=== PATIENT | male | born 1945 | race Caucasian/White ===

== ENCOUNTER → 2018-02-24 12:56 | Outpatient (CLI) | payer MEDICARE, OTHER, SELFPAY ==
[2018-02-24 14:31] LABS: Prostate Specific Antigen < 0.064 ng/mL (0.10-4.00)
== END ==
PROVIDERS: PCP Family Medicine; Visit Provider Urology
DX: C61 Malignant neoplasm of prostate (principal)
CPT/HCPCS: 36415; 84153

== ENCOUNTER → 2018-03-17 15:09 | Outpatient (CLI) | payer MEDICARE, OTHER, SELFPAY ==
--- NOTE | 2018-03-17 | DI.US.S_ITS ---
PROCEDURE: US ABD AORTA ANEURYSM SCREEN INDICATIONS: ABDOMINAL AORTIC ANEURYSM SCREENING TECHNIQUE: Real time scanning was performed of the aorta and iliac arteries, with image documentation. COMPARISON: None. FINDINGS: Aorta: Proximal aortic diameter measures 2.1 x 2.3 cm. Mid-aorta measures 1.6 x 1.7 cm. Distal aortic diameter is 1.7 x 1.9 cm. Iliac arteries: Right common iliac artery measures 1.1 x 1.0 cm. Left common iliac artery measures 1.1 x 1.1 cm. The imaging coincidentally included identification of a hypoechoic masslike structure at the pancreatic neck area, possibly contiguous with the pancreatic duct. IMPRESSION: No aneurysm found. There is an incidental finding of a hypoechoic possible pancreatic neck mass. This measures up to approximately 1.2 cm transverse and 6 mm AP. Pancreatic protocol CT scanning without and with contrast is recommended. Dictated by: Santino Pineda M.D. on 03/17/2018 at 16:11 Approved by: Santino Pineda M.D. on 03/17/2018 at 17:01
== END ==
PROVIDERS: PCP Family Medicine; Visit Provider Family Medicine
DX: Z13.6 Encounter for screening for cardiovascular disorders (principal)
CPT/HCPCS: 76706

== ENCOUNTER → 2018-04-07 14:25 | Outpatient (CLI) | payer MEDICARE, OTHER, SELFPAY ==
[2018-04-07 15:01] LABS: Alanine Aminotransferase 33 IU/L (21-72); Albumin 3.9 g/dL (3.5-5.0); Albumin Globulin Ratio 1.6 (1.0-2.8); Alkaline Phosphatase 75 U/L (38-126); Aspartate Aminotransferase 30 IU/L (17-59); BUN Creatinine Ratio 17.5 (6-22); Bilirubin Total 0.4 mg/dL (0.2-1.3); Blood Urea Nitrogen 14 mg/dL (9-20); Calcium 9.1 mg/dL (8.4-10.2); Carbon Dioxide 29 mmol/L (22-32); Chloride 103 mmol/L (98-107); Estimated Glomerular Filt Rate > 60.0 mL/min (>60); Globulin 2.5 g/dL (1.7-4.1); Glucose 105 mg/dL (80-110); HEMOLYSIS < 15 (0-50); Sodium 138 mmol/L (137-145); Total Protein 6.4 g/dL (6.3-8.2)
== END ==
PROVIDERS: PCP Family Medicine; Visit Provider Family Medicine
DX: K86.9 Disease of pancreas, unspecified (principal)
CPT/HCPCS: 36415; 80053

== ENCOUNTER → 2018-04-11 09:04 | Outpatient (CLI) | payer MEDICARE, OTHER, SELFPAY ==
--- NOTE | 2018-04-11 | DI.CT.S_ITS ---
PROCEDURE: CT ABDOMEN W CON INDICATIONS: PANCREATIC MASS TECHNIQUE: After the administration of intravenous contrast, 5 mm thick sections acquired from the diaphragm to the iliac crests. 5 mm coronal and sagittal reformats were performed. For radiation dose reduction, the following was used: automated exposure control, adjustment of mA and/or kV according to patient size. COMPARISON: [facility], CT, ABDOMEN/PELVIS WITH CONTRAST, 02/26/2016, 11:04. [facility], US, US ABD AORTA ANEURYSM SCREEN, 03/17/2018, 15:42. FINDINGS: Image quality: Excellent. Lung bases: Lung bases are clear. Heart size is normal. Small hiatal hernia. Solid organs: Liver is normal in size and enhancement. A few scattered sub-5 mm hepatic hypodensities are again noted. These are too small to characterize but likely represent cysts versus hemangiomas. Gallbladder appears unremarkable. Biliary system is non dilated. The within the pancreatic body near the pancreatic neck, there is a 1.2 x 1.1 x 0.8 cm hypodense mass which likely corresponds to hypoechoic mass seen on recent ultrasound. There is no associated pancreatic ductal dilatation. No adjacent peripancreatic stranding. Pancreas otherwise enhances uniformly. Spleen is normal in size and enhancement. No adrenal nodules. Kidneys demonstrate normal size and enhancement, without hydronephrosis. Peritoneum and bowel: Bowel loops demonstrate normal wall thickness and caliber. No free fluid or air. Scattered colonic diverticula without acute inflammation. Nodes and vessels: No retroperitoneal or mesenteric adenopathy by size criteria. Aorta and inferior vena cava are normal in size. Miscellaneous: No ventral hernias. Stable oval sclerotic lesions involving the medial iliac wings bilaterally likely representing bone islands. No suspicious osseous lesions. Multilevel spondylitic changes without acute compression fractures of the visualized vertebral bodies. IMPRESSION: 1. There is a 1.2 x 1.1 x 0.8 cm hypodense mass noted within the pancreatic body, in close vicinity to the pancreatic neck and likely correlates with hypoechoic lesion seen on recent comparison abdominal ultrasound. Findings are suspicious for a pancreatic neoplasm. 2. Colonic diverticulosis without acute diverticulitis. 3. Remainder of the visualized structures appear stable compared to CT dated 02/26/2016 without evidence for metastatic disease. Dictated by: Iron Muhammad M.D. on 04/12/2018 at 11:14 Approved by: Iron Muhammad M.D. on 04/12/2018 at 11:27
== END ==
PROVIDERS: Visit Provider Family Medicine
DX: K86.9 Disease of pancreas, unspecified (principal); K57.90 Diverticulosis of intestine, part unspecified, without perforation or abscess without bleeding
CPT/HCPCS: 74170; Q9967

== ENCOUNTER 2018-07-25 08:13 | Day surgery (SDC) | payer MEDICARE, OTHER, SELFPAY ==
--- NOTE | 2018-07-25 | PATH_ITS ---
[facility] Accession Number: [id number] . 01 Material submitted: . colon - TRANSVERSE COLON POLYP . 02 Diagnosis: Transverse Colon, Polyp: Tubular adenoma. Background colonic mucosa with intraepithelial lymphocytosis; please see comment. Additional step sections examined. V/07/27/2018 . 02 Comment: Background colonic mucosa shows an increased mononuclear cell population of the lamina propria and intraepithelial lymphocytosis. This histologic finding raises the possibility of lymphocytic colitis in the appropriate clinical setting. . 02 Electronically signed: . Blade Machado MD, PhD, Pathologist NPI- [id number] . 01 Gross description: . TRANSVERSE COLON POLYP: Received in formalin are 2 fragment(s) of ramírez, soft tissue measuring 0.2 x 0.2 x 0.1 cm to 0.4 x 0.3 x 0.2 cm which is entirely submitted and submitted entirely in 1 cassette(s) /DMC /DMC . 02 Pathologist provided ICD-10: D12.3 . 02 CPT . 019631 Performed at: 01 [facility] [address] [place] [address], [place], [place] [id number] MD Timoteo Phillips MD Phone: [phone] Performed at: 02 [facility] [address] [place], [place] [id number] MD Svetlana Gutierrez MD Phone: [phone]
[2018-07-25 08:52] VITALS: BMI 24.0
--- NOTE | 2018-07-25 08:53 | PM.HP.1 ---
History of Present Illness Date Patient Seen: 07/25/18 Time Patient Seen: 09:00 Chief complaint: [id number] Narrative: 72yo M with family history of colon cancer and person history of 'pre-cancerous lesion' for which he had a '6 cm segment' of colon removed some years ago. He had a CVA around that time and his memory is poor for details. Has had many colonoscopies but does not know when the last one was. Meds Home Medications Medication Instructions Recorded Confirmed Type aspirin [Aspir-81] 81 mg PO DAILY 07/25/18 07/25/18 History cholecalciferol (vitamin D3) 2,000 unit PO DAILY 07/25/18 07/25/18 History [Vitamin D3] melatonin 6 mg PO BEDTIME PRN 07/25/18 07/25/18 History metoprolol succinate [Toprol XL] 50 mg PO DAILY 07/25/18 07/25/18 History niacin [Niaspan Extended-Release] 500 mg PO BID 07/25/18 07/25/18 History simvastatin 20 mg PO QPM 07/25/18 07/25/18 History terbinafine HCl 250 mg PO DAILY 07/25/18 07/25/18 History Allergies Allergy/AdvReac Type Severity Reaction Status Date / Time No Known Drug Allergies Allergy Verified 07/25/18 08:40 Review of Systems Constitutional Constitutional: Reports as per HPI Exam Narrative Exam Narrative: AAO but some memory confusion, NAD, male of healthy weight EOMI, MMM, no scleral icterus; hard of hearing unlabored RA soft, nt/nd MAEW visible skin dry and intact Assessment & Plan (1) History of colon polyps: Current visit: Yes Status: Acute Assessment & Plan narrative: - surveillance colonoscopy --> all R/B/A discussed and pt wishes to proceed
[2018-07-25 08:55] VITALS: BP 129/85; PULSE 74; RESP 16; TEMP 36.3; O2SAT 94
[2018-07-25 08:59] VITALS: BMI 24.0
[2018-07-25] MEDS: SODIUM CHLORIDE 0.9% 1,000 ML 200 ML IV (08:59)
[2018-07-25] MEDS: fentaNYL 250 MCG/5 ML INJ IV (09:27)
[2018-07-25] MEDS: MIDAZOLAM 5 MG/5 ML VIAL IV (09:28)
--- NOTE | 2018-07-25 09:33 | PM.OP.ENDO ---
Operative Date/Time/Diagnoses Date of procedure: 07/25/18 Time of procedure: 09:33 Pre-op diagnosis: History of colon polyps Post-op diagnosis: same Procedure & Clinicians Study performed: Surveillance Colonoscopy Same procedure as scheduled: Yes Indications: 72yo M s/p CVA with history of polyps that were precancerous and per pt a segment of colon was removed; he is unsure of details due to stroke. Also has a family history. No reported symptoms. Surgeon: Martha Weston Procedure Notes SCOAP/Timeout: 908 Procedure in detail: After obtaining informed consent, the patient was brought to the GI suite and placed in the left lateral decubitus position on the examination table. After placement of appropriate monitors, the patient was given incremental doses of Versed and Fentanyl until an appropriate level of sedation was achieved. A time out was held per SCOAP protocol. A digital rectal examination was performed and did not reveal any masses or obstructing lesions. The colonoscope was gently passed into the patient's anus and the entire colon navigated to the level of the cecum with minimal difficulty. Prep was adequate. Once in the cecum, the scope was slowly withdrawn being sure to go before and beyond all mucosal folds and prominences as able to get a thorough examination. A small transverse colon polyp is noted and removed for biopsy; 1mm, hyperplastic in appearance. Other findings include diverticulosis. At the level of the rectal vault, the scope was retroflexed and the internal anal canal was examined. The scope was straightened and air aspirated from the colon. The instrument was removed from the patient's body and the procedure was concluded. The patient was allowed to awaken from sedation without difficulty and taken to the post-anesthesia care unit in good condition. Scope withdrawal time: 9 min Sedation minutes: 21 Findings: diverticulosis (scattered through sigmoid and left colon primarily) and polyp (1mm, transverse colon, appears hyperplastic- removed for biopsy) Specimen(s): other (transverse colon polyp) Complications: none Impression: 1. Diverticulosis, mild to moderate, primarily sigmoid and left colon 2. Transverse colon polyp, appears hyperplastic- removed for biopsy Recommendations: Colonscopy in 5 years (pending path) and High fiber diet Follow up: as needed Disposition: PACU
[2018-07-25 09:36] VITALS: BP 116/77; PULSE 60; RESP 13; TEMP 36.6; O2SAT 99
[2018-07-25 09:41] VITALS: BP 111/72; PULSE 60; RESP 11; O2SAT 98
[2018-07-25 09:46] VITALS: BP 123/81; PULSE 67; RESP 12; TEMP 36.4; O2SAT 98
[2018-07-25 09:51] VITALS: BP 125/88; PULSE 63; RESP 13; TEMP 36.4; O2SAT 98
[2018-07-25 09:53] VITALS: BP 134/90; PULSE 61; RESP 61; TEMP 36.4; O2SAT 98
== END 2018-07-25 10:10 | disposition home or self-care (01) ==
PROVIDERS: Visit Provider Surgery
PROC: 0DJD8ZZ Inspection of Lower Intestinal Tract, Via Natural or Artificial Opening Endoscopic (ICD-10-PCS; CPT 45378; principal; 2018-07-25 09:45)
DX: Z86.010 Personal history of colon polyps (principal); K57.30 Diverticulosis of large intestine without perforation or abscess without bleeding; D12.3 Benign neoplasm of transverse colon
CPT/HCPCS: 45380; 88305; 99152; J2250; J3010

== ENCOUNTER 2020-04-25 14:49 | Emergency (ER) | payer MEDICARE, OTHER, SELFPAY ==
[2020-04-25] VITALS (11 sets, daily range): BP systolic 137–156; BP diastolic 86–97; PULSE 75–97; RESP 14–34; TEMP 36.9; O2SAT 96–100; BMI 24.4
[2020-04-25 15:36] LABS: Add Manual Diff / Slide Review NO; Basophils Absolute Auto 0 /uL (0-100); Basophils Percent Auto 0.4 % (0-2); Eosinophils Absolute Auto 100 /uL (0-450); Eosinophils Percent Auto 0.8 % (2-4); Hematocrit 42.5 % (41-53); Lymphocytes Absolute Auto 1100 /uL (1100-4500); Lymphocytes Percent Auto 15.5 % (25-40); Mean Corpuscular Hemoglobin 29.6 PG (26-34); Mean Corpuscular Volume 89.8 fL (80-100); Monocytes Absolute Auto 900 /uL (0-900); Monocytes Percent Auto 12.9 % (3-14); Neutrophils Absolute Auto 5000 /uL (1500-7000); Neutrophils Percent Auto 70.4 % (50-75); Platelet Count 232 X10^3/uL (150-400); Red Blood Cell Count 4.73 X10^6/uL (4.5-5.9); Red Cell Distribution Width 14.1 % (11.6-14.8); White Blood Cell Count 7.1 X10^3/uL (4.5-11.0)
[2020-04-25 15:43] LABS: Prothrombin Time 11.7 SECONDS (10.1-12.7)
[2020-04-25 15:46] LABS: PTT Partial Thromboplastin Tim 27 SECONDS (26.4-36.2)
[2020-04-25 15:57] LABS: Alanine Aminotransferase 26 IU/L (<50); Albumin Globulin Ratio 1.5 (1.0-2.8); Alkaline Phosphatase 72 U/L (38-126); Aspartate Aminotransferase 40 IU/L (17-59); BUN Creatinine Ratio 22.8 (6-22); Bilirubin Total 0.4 mg/dL (0.2-1.3); Blood Urea Nitrogen 18 mg/dL (9-20); Calcium 9.3 mg/dL (8.4-10.2); Carbon Dioxide 30 mmol/L (22-32); Chloride 102 mmol/L (98-107); Estimated Glomerular Filt Rate > 60.0 mL/min (>60); Globulin 2.6 g/dL (1.7-4.1); Glucose 94 mg/dL (80-110); HEMOLYSIS 20 (0-50); Potassium 3.9 mmol/L (3.4-5.1); Sodium 135 mmol/L (137-145); Total Protein 6.6 g/dL (6.3-8.2)
--- NOTE | 2020-04-25 16:13 | ED_ITS ---
HPI - GI Bleed <Kun Mckinnon DO - Last Filed: 04/26/20 07:00> General Chief complaint: GI Bleed Stated complaint: blood in stool Time Seen by Provider: 04/25/20 14:51 Source: patient Mode of arrival: Ambulatory Limitations: no limitations History of Present Illness HPI Narrative: Patient is a 74-year-old male. He does have a history of colon cancer and has had a bowel resection. He states that for ?some time? he has had issues with constipation any felt like it is worsened over the past day or so. Patient's son is at bedside to help provide a lot of the HPI. Unsure as to exactly how long the patient thinks that he has been constipated. The son states that he complains of this often but does seem to have regular bowel movements. Today patient stated that he had a bowel movement that was bright red blood. He states that was not tender to go to the bathroom. He has not had any urinary symptoms. He is not on blood thinners. Has not had any nausea or vomiting. He states that he does not feel distended. He does not think that he is been passing gas. He did try a oral laxative yesterday without any improvement of the symptoms any also used a suppository today. Related Data Home Medications Medication Instructions Recorded Confirmed aspirin 81 mg PO QDAY #0 04/09/16 metoprolol tartrate 25 mg PO DAILY #0 04/09/16 niacin 100 mg #0 04/09/16 Allergies Allergy/AdvReac Type Severity Reaction Status Date / Time No Known Drug Allergies Allergy Verified 04/25/20 14:59 Review of Systems <DO Cortez Harris Last Filed: 04/26/20 07:00> Constitutional Constitutional: Denies fever(s) and Denies headache(s) ENT Ears, Nose, Mouth, and Throat: Denies headache(s) Cardiovascular Cardiovascular: Denies chest pain and Denies dyspnea Respiratory Respiratory: Denies dyspnea Gastrointestinal Gastrointestinal: Denies abdominal pain, Denies melena, Reports hematochezia, Reports constipation, Denies nausea and Denies vomiting Genitourinary Genitourinary: Denies dysuria Genitourinary: Denies dysuria Musculoskeletal Musculoskeletal: Denies arthralgias and Denies myalgias Integumentary/Breasts Skin/Breast: Denies rash Neurologic Neurologic: Denies behavioral changes and Denies headache(s) Psychiatric Psychiatric: Denies behavioral changes Hematologic/Lymphatic On Anticoagulants: No Allergic/Immunologic Allergic/Immunologic: Denies urticaria Patient History <Kun Mckinnon DO - Last Filed: 04/26/20 07:00> Medical History Colon cancer Surgical History History of bowel resection Social History Smoking Status: Unknown if ever smoked Smoking Status: Unknown if ever smoked alcohol intake frequency: holidays/special occasions only Substance Use Type: does not use Exam <Kun Mckinnon DO - Last Filed: 04/26/20 07:00> Initial Vital Signs Initial Vital Signs: Vital Signs Temperature 98.4 F 04/25/20 14:59 Pulse Rate 79 04/25/20 14:59 Respiratory Rate 14 04/25/20 14:59 Blood Pressure 144/89 H 04/25/20 14:59 Pulse Oximetry 99 04/25/20 14:59 Const General: cooperative Limitations: mental status not altered HENMT Head: normal to inspection and normocephalic Resp Effort & Inspection: normal respiratory effort Auscultation: clear to auscultation bilaterally Cardio Rate: regular rate Rhythm: regular rhythm GI Inspection: non-distended Palpation: soft, No firm and No tender Rectal Exam: normal sphincter tone, No hemorrhoids, No lesions and No mass Other: Gross bright red blood on exam Skin Lesions: no lesions Rashes: no rashes Neuro General: patient alert and patient awake Cognition: normal cognition Speech: speech normal Extrem General: capillary refill normal Psych Appearance: grossly normal and well kempt <Fabio Hutchinson MD - Last Filed: 04/25/20 19:51> Initial Vital Signs Initial Vital Signs: Vital Signs Temperature 98.4 F 04/25/20 14:59 Pulse Rate 79 04/25/20 14:59 Respiratory Rate 14 04/25/20 14:59 Blood Pressure 144/89 H 04/25/20 14:59 Pulse Oximetry 99 04/25/20 14:59 Course <Kun Mckinnon DO - Last Filed: 04/26/20 07:00> Orders Ordered: Discontinued Medications Sodium Chloride (Normal Saline 0.9%) 1,000 mls @ 500 mls/hr IV BOLUS ONE Stop: 04/25/20 18:22 Last Infusion: 04/25/20 18:55 Dose: 0 mls/hr Documented by: Admin: 04/25/20 16:30 Dose: 500 mls/hr Documented by: LYNDA Sodium Biphosphate/Sodium Phosphate (Fleets Enema) 1 each NE NOW ONE Stop: 04/25/20 17:31 Last Admin: 04/25/20 17:45 Dose: 1 each Documented by: LYNDA Vital Signs Vital signs: Vital Signs - 8 hr 04/25/20 14:59 04/25/20 15:29 04/25/20 15:30 Temperature 98.4 F Pulse Rate 79 79 81 Respiratory Rate 14 28 H 28 H Blood Pressure 144/89 H 153/93 H 153/92 H Pulse Oximetry 99 98 98 04/25/20 16:00 04/25/20 16:30 04/25/20 16:54 Temperature Pulse Rate 81 82 80 Respiratory Rate 18 34 H 16 Blood Pressure 156/87 H 146/92 H 145/87 H Pulse Oximetry 99 97 100 04/25/20 17:00 04/25/20 17:30 04/25/20 18:00 Temperature Pulse Rate 78 79 75 Respiratory Rate 22 26 H 20 Blood Pressure 137/89 139/86 144/94 H Pulse Oximetry 99 99 04/25/20 18:30 Temperature Pulse Rate 97 H Respiratory Rate 20 Blood Pressure 137/97 H Pulse Oximetry <Fabio Hutchinson MD - Last Filed: 04/25/20 19:51> Course Course Narrative: 04/25/20 @19:46. Care was assumed from Dr. Mckinnon at change of shift. The patient has a history of bowel resection due to cancer. Arrives with constipation, but GI bleeding was discovered. CT shows diverticulosis, no diverticulitis. Also shown is a previous identified pancreatic lesion. The patient and his family are aware of the pancreatic lesion, it is been monitored. There is no treatment plan. The constipation has been treated, he had a bowel movement. He has no abdominal pain. There is no significant ongoing bleeding. His H/H is stable. The situation discussed with the son who has arrived. 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 I have suggest a follow-up with Gastroenterology regarding the lower GI bleed. I suggested return to the ER if there is increased bleeding. Orders Ordered: Discontinued Medications Sodium Chloride (Normal Saline 0.9%) 1,000 mls @ 500 mls/hr IV BOLUS ONE Stop: 04/25/20 18:22 Last Infusion: 04/25/20 18:55 Dose: 0 mls/hr Documented by: Admin: 04/25/20 16:30 Dose: 500 mls/hr Documented by: LYNDA Sodium Biphosphate/Sodium Phosphate (Fleets Enema) 1 each NE NOW ONE Stop: 04/25/20 17:31 Last Admin: 04/25/20 17:45 Dose: 1 each Documented by: LYNDA Vital Signs Vital signs: Vital Signs - 8 hr 04/25/20 14:59 04/25/20 15:29 04/25/20 15:30 Temperature 98.4 F Pulse Rate 79 79 81 Respiratory Rate 14 28 H 28 H Blood Pressure 144/89 H 153/93 H 153/92 H Pulse Oximetry 99 98 98 04/25/20 16:00 04/25/20 16:30 04/25/20 16:54 Temperature Pulse Rate 81 82 80 Respiratory Rate 18 34 H 16 Blood Pressure 156/87 H 146/92 H 145/87 H Pulse Oximetry 99 97 100 04/25/20 17:00 04/25/20 17:30 04/25/20 18:00 Temperature Pulse Rate 78 79 75 Respiratory Rate 22 26 H 20 Blood Pressure 137/89 139/86 144/94 H Pulse Oximetry 99 99 04/25/20 18:30 Temperature Pulse Rate 97 H Respiratory Rate 20 Blood Pressure 137/97 H Pulse Oximetry MDM - GI Bleed <Kun Mckinnon, DO - Last Filed: 04/26/20 07:00> Lab Data Attestation: I reviewed the patient's lab results. Result diagrams: 04/25/20 18:45 04/25/20 15:25 Labs: Lab Results 04/25/20 04/25/20 04/25/20 Range/Units 15:25 15:25 15:25 WBC 7.1 (4.5-11.0) X10^3/uL RBC 4.73 (4.5-5.9) X10^6/uL Hgb 14.0 (13.5-17.5) g/dL Hct 42.5 (41-53) % MCV 89.8 (80-100) fL MCH 29.6 (26-34) PG MCHC 33.0 (30-36) % RDW 14.1 (11.6-14.8) % Plt Count 232 (150-400) X10^3/uL Neut % (Auto) 70.4 (50-75) % Lymph % (Auto) 15.5 L (25-40) % [place] % (Auto) 12.9 (3-14) % Eos % (Auto) 0.8 L (2-4) % Baso % (Auto) 0.4 (0-2) % Neut # (Auto) 5000 (5025-6601) /uL Lymph # (Auto) 1100 (5006-7246) /uL [place] # (Auto) 900 (0-900) /uL Eos # (Auto) 100 (0-450) /uL Baso # (Auto) 0 (0-100) /uL PT 11.7 (10.1-12.7) SECONDS INR 1.0 (0.9-1.3) APTT 27 (26.4-36.2) SECONDS Sodium 135 L (137-145) mmol/L Potassium 3.9 (3.4-5.1) mmol/L Chloride 102 (98-107) mmol/L Carbon Dioxide 30 (22-32) mmol/L BUN 18 (9-20) mg/dL Creatinine 0.79 (0.66-1.25) mg/dL Estimated GFR > 60.0 (>60) mL/min BUN/Creatinine Ratio 22.8 H (6-22) Glucose 94 (80-110) mg/dL Calcium 9.3 (8.4-10.2) mg/dL Total Bilirubin 0.4 (0.2-1.3) mg/dL AST 40 (17-59) IU/L ALT 26 (<50) IU/L Alkaline Phosphatase 72 (38-126) U/L Total Protein 6.6 (6.3-8.2) g/dL Albumin 4.0 (3.5-5.0) g/dL Globulin 2.6 (1.7-4.1) g/dL Albumin/Globulin Ratio 1.5 (1.0-2.8) 04/25/20 Range/Units 18:45 WBC (4.5-11.0) X10^3/uL RBC (4.5-5.9) X10^6/uL Hgb 13.9 (13.5-17.5) g/dL Hct 41.3 (41-53) % MCV (80-100) fL MCH (26-34) PG MCHC (30-36) % RDW (11.6-14.8) % Plt Count (150-400) X10^3/uL Neut % (Auto) (50-75) % Lymph % (Auto) (25-40) % [place] % (Auto) (3-14) % Eos % (Auto) (2-4) % Baso % (Auto) (0-2) % Neut # (Auto) (7131-3903) /uL Lymph # (Auto) (0252-4322) /uL [place] # (Auto) (0-900) /uL Eos # (Auto) (0-450) /uL Baso # (Auto) (0-100) /uL PT (10.1-12.7) SECONDS INR (0.9-1.3) APTT (26.4-36.2) SECONDS Sodium (137-145) mmol/L Potassium (3.4-5.1) mmol/L Chloride (98-107) mmol/L Carbon Dioxide (22-32) mmol/L BUN (9-20) mg/dL Creatinine (0.66-1.25) mg/dL Estimated GFR (>60) mL/min BUN/Creatinine Ratio (6-22) Glucose (80-110) mg/dL Calcium (8.4-10.2) mg/dL Total Bilirubin (0.2-1.3) mg/dL AST (17-59) IU/L ALT (<50) IU/L Alkaline Phosphatase (38-126) U/L Total Protein (6.3-8.2) g/dL Albumin (3.5-5.0) g/dL Globulin (1.7-4.1) g/dL Albumin/Globulin Ratio (1.0-2.8) Urine Dip Bedside Urine Glucose Negative Bedside Urine Bilirubin - Negative Bedside Urine Ketone - Negative Urine Specific [place] 1.015 Bedside Urine Occult Blood - Negative Bedside Urine pH 6.0 Bedside Urine Protein - Negative Bedside Urine Urobilinogen - Negative Bedside Urine Nitrite - Negative Bedside Urine Leukocytes - Negative Esterase Imaging Data CT scan - abdomen/pelvis: Radiologist's Impression: [place] [id number] [place] [id number] Scan ReportSigned Patient: Vinay Bravo KMR#: [id number]: 5Acct:[id number]/Sex: 74 / MDate of Service: 04/25/20Loc: EDAccession Number: [id number] Procedure: CT abdomen pelvis w con Ordering Provider: Kun Mckinnon D.O. PROCEDURE: CT ABDOMEN PELVIS W CON INDICATIONS: Constipation, abdominal pain TECHNIQUE: After the administration of intravenous contrast, 5 mm thick sections acquired from the diaphragm to the symphysis. 5 mm coronal and sagittal reformats were acquired. For radiation dose reduction, the following was used: automated exposure control, adjustment of mA and/or kV according to patient size. COMPARISON: [facility], CT, CT ABDOMEN W CON, 04/11/2018, 9:31. [facility], MR, MR ABDOMEN PANCREAS PROTOCOL, 11/12/2018, 8:35. [facility], CT, ABDOMEN/PELVIS WITH CONTRAST, 02/26/2016, 11:04. FINDINGS: Image quality: Excellent. ABDOMEN: Lung bases: Lung bases are clear. Heart size is normal. Small hiatal hernia. Solid organs: Liver is normal in size and enhancement. Redemonstration of multiple subcentimeter hepatic hypodensities which are too small to accurately characterize but likely represent hepatic cysts or hemangiomas. Gallbladder is unremarkable. Biliary system is non dilated. Pancreas demonstrates homogeneous enhancement with stable appearance of focal cystic lesion involving the main pancreatic duct near the pancreatic body. This was previously evaluated to represent a likely intraductal pancreatic mucinous neoplasm. It measures approximately 1.1 cm x 1.3 cm. The main pancreatic duct is otherwise normal in caliber. Spleen is normal in size and enhancement. Kidneys demonstrate normal size and enhancement, without hydronephrosis. Visualized course of the bilateral ureters are normal. Peritoneum and bowel: Bowel loops demonstrate normal wall thickness and caliber. No free fluid or air. Moderate amount of fecal material seen throughout the colon and rectum. Scanned colonic diverticulosis without acute inflammatory changes. Normal appendix. Nodes and vessels: No retroperitoneal or mesenteric adenopathy by size criteria. Aorta and inferior vena cava are normal in size. Scattered atherosclerotic calcifications of the abdominal aorta and iliac vessels without aneurysmal dilatation. Miscellaneous: No ventral hernias. PELVIS: Genitourinary: Urinary bladder wall thickness appears normal for degree of distension. 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 Miscellaneous: Small fat containing right inguinal hernia without acute inflammation. No pelvic adenopathy. Bones: Accounting for differences in imaging technique, stable appearance of multiple scattered punctate sclerotic lesions noted within the right iliac bone, left iliac bone, multiple lumbar and thoracic vertebral bodies. No acute vertebral body compression fractures. IMPRESSION: 1. Moderate amount of fecal material seen throughout the colon and rectum possibly related to constipation. 2. Scattered colonic diverticulosis without acute diverticulitis. 3. 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 Recommend continued clinical and imaging surveillance. 4. Small hiatal hernia. 5. Small right fat containing inguinal hernia without acute inflammation. 6. Stable appearance of multiple subcentimeter hepatic hypodensities likely representing cysts versus hemangiomas. 7. Atherosclerosis. Dictated by: Iron Muhammad M.D. on 04/25/2020 at 17:00 Approved by: Iron Muhammad M.D. on 04/25/2020 at 17:15 ECG Data Attestation: I personally reviewed and interpreted this ECG as follows: Prior ECG tracings: not available for review Interpretation: Sinus rhythm Ventricular rate is 79 Left axis deviation Normal QRS Normal QTC No ST T wave changes MDM Narrative Medical decision making narrative: Patient's CT scan does not show any signs of obstructions. His labs are unremarkable. He does have a pancreatic lesion noted on the CT scan. Will attempt enema here in the emergency department to see if this does not improve his symptoms. Care turned over to Dr. Hutchinson to follow up, re-examined and disposition. <Fabio Hutchinson MD - Last Filed: 04/25/20 19:51> Lab Data Labs: Lab Results 04/25/20 04/25/20 04/25/20 Range/Units 15:25 15:25 15:25 WBC 7.1 (4.5-11.0) X10^3/uL RBC 4.73 (4.5-5.9) X10^6/uL Hgb 14.0 (13.5-17.5) g/dL Hct 42.5 (41-53) % MCV 89.8 (80-100) fL MCH 29.6 (26-34) PG MCHC 33.0 (30-36) % RDW 14.1 (11.6-14.8) % Plt Count 232 (150-400) X10^3/uL Neut % (Auto) 70.4 (50-75) % Lymph % (Auto) 15.5 L (25-40) % [place] % (Auto) 12.9 (3-14) % Eos % (Auto) 0.8 L (2-4) % Baso % (Auto) 0.4 (0-2) % Neut # (Auto) 5000 (3173-0737) /uL Lymph # (Auto) 1100 (3044-9678) /uL [place] # (Auto) 900 (0-900) /uL Eos # (Auto) 100 (0-450) /uL Baso # (Auto) 0 (0-100) /uL PT 11.7 (10.1-12.7) SECONDS INR 1.0 (0.9-1.3) APTT 27 (26.4-36.2) SECONDS Sodium 135 L (137-145) mmol/L Potassium 3.9 (3.4-5.1) mmol/L Chloride 102 (98-107) mmol/L Carbon Dioxide 30 (22-32) mmol/L BUN 18 (9-20) mg/dL Creatinine 0.79 (0.66-1.25) mg/dL Estimated GFR > 60.0 (>60) mL/min BUN/Creatinine Ratio 22.8 H (6-22) Glucose 94 (80-110) mg/dL Calcium 9.3 (8.4-10.2) mg/dL Total Bilirubin 0.4 (0.2-1.3) mg/dL AST 40 (17-59) IU/L ALT 26 (<50) IU/L Alkaline Phosphatase 72 (38-126) U/L Total Protein 6.6 (6.3-8.2) g/dL Albumin 4.0 (3.5-5.0) g/dL Globulin 2.6 (1.7-4.1) g/dL Albumin/Globulin Ratio 1.5 (1.0-2.8) 04/25/ Range/Units 18:45 WBC (4.5-11.0) X10^3/uL RBC (4.5-5.9) X10^6/uL Hgb 13.9 (13.5-17.5) g/dL Hct 41.3 (41-53) % MCV (80-100) fL MCH (26-34) PG MCHC (30-36) % RDW (11.6-14.8) % Plt Count (150-400) X10^3/uL Neut % (Auto) (50-75) % Lymph % (Auto) (25-40) % [place] % (Auto) (3-14) % Eos % (Auto) (2-4) % Baso % (Auto) (0-2) % Neut # (Auto) (7646-0071) /uL Lymph # (Auto) (5473-6387) /uL [place] # (Auto) (0-900) /uL Eos # (Auto) (0-450) /uL Baso # (Auto) (0-100) /uL PT (10.1-12.7) SECONDS INR (0.9-1.3) APTT (26.4-36.2) SECONDS Sodium (137-145) mmol/L Potassium (3.4-5.1) mmol/L Chloride (98-107) mmol/L Carbon Dioxide (22-32) mmol/L BUN (9-20) mg/dL Creatinine (0.66-1.25) mg/dL Estimated GFR (>60) mL/min BUN/Creatinine Ratio (6-22) Glucose (80-110) mg/dL Calcium (8.4-10.2) mg/dL Total Bilirubin (0.2-1.3) mg/dL AST (17-59) IU/L ALT (<50) IU/L Alkaline Phosphatase (38-126) U/L Total Protein (6.3-8.2) g/dL Albumin (3.5-5.0) g/dL Globulin (1.7-4.1) g/dL Albumin/Globulin Ratio (1.0-2.8) Urine Dip Bedside Urine Glucose Negative Bedside Urine Bilirubin - Negative Bedside Urine Ketone - Negative Urine Specific [place] 1.015 Bedside Urine Occult Blood - Negative Bedside Urine pH 6.0 Bedside Urine Protein - Negative Bedside Urine Urobilinogen - Negative Bedside Urine Nitrite - Negative Bedside Urine Leukocytes - Negative Esterase Discharge Plan Departure Patient Disposition: Home Clinical Impression: Pancreatic lesion, Constipation, Lower gastrointestinal hemorrhage, Diverticu losis Instructions: Gastrointestinal Bleeding Activity Restrictions/Additional Instructions: Your blood count is stable, you have not had a significant amount of bleeding. Be sure you are drinking plenty of water. You should also be on a high-fiber diet. If you develop significant increase in bleeding, return the ER. Arrange follow-up with your powerhouse attendant, your GI specialist may want to do a colonoscopy to further evaluate the situation. Prescriptions: No Action niacin 100 MG tablet 100 mg Qty: 0 RF: 0 metoprolol tartrate 25 MG tablet 25 mg PO DAILY Qty: 0 RF: 0 aspirin 81 MG tablet,delayed release (DR/EC) 81 mg PO QDAY Qty: 0 RF: 0
--- NOTE | 2020-04-25 16:24 | DI.CT.S_ITS ---
PROCEDURE: CT ABDOMEN PELVIS W CON INDICATIONS: Constipation, abdominal pain TECHNIQUE: After the administration of intravenous contrast, 5 mm thick sections acquired from the diaphragm to the symphysis. 5 mm coronal and sagittal reformats were acquired. For radiation dose reduction, the following was used: automated exposure control, adjustment of mA and/or kV according to patient size. COMPARISON: [facility], CT, CT ABDOMEN W CON, 04/11/2018, 9:31. [facility], MR, MR ABDOMEN PANCREAS PROTOCOL, 11/12/2018, 8:35. [facility], CT, ABDOMEN/PELVIS WITH CONTRAST, 02/26/2016, 11:04. FINDINGS: Image quality: Excellent. ABDOMEN: Lung bases: Lung bases are clear. Heart size is normal. Small hiatal hernia. Solid organs: Liver is normal in size and enhancement. Redemonstration of multiple subcentimeter hepatic hypodensities which are too small to accurately characterize but likely represent hepatic cysts or hemangiomas. Gallbladder is unremarkable. Biliary system is non dilated. Pancreas demonstrates homogeneous enhancement with stable appearance of focal cystic lesion involving the main pancreatic duct near the pancreatic body. This was previously evaluated to represent a likely intraductal pancreatic mucinous neoplasm. It measures approximately 1.1 cm x 1.3 cm. The main pancreatic duct is otherwise normal in caliber. Spleen is normal in size and enhancement. Kidneys demonstrate normal size and enhancement, without hydronephrosis. Visualized course of the bilateral ureters are normal. Peritoneum and bowel: Bowel loops demonstrate normal wall thickness and caliber. No free fluid or air. Moderate amount of fecal material seen throughout the colon and rectum. Scanned colonic diverticulosis without acute inflammatory changes. Normal appendix. Nodes and vessels: No retroperitoneal or mesenteric adenopathy by size criteria. Aorta and inferior vena cava are normal in size. Scattered atherosclerotic calcifications of the abdominal aorta and iliac vessels without aneurysmal dilatation. Miscellaneous: No ventral hernias. PELVIS: Genitourinary: Urinary bladder wall thickness appears normal for degree of distension. 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 Miscellaneous: Small fat containing right inguinal hernia without acute inflammation. No pelvic adenopathy. Bones: Accounting for differences in imaging technique, stable appearance of multiple scattered punctate sclerotic lesions noted within the right iliac bone, left iliac bone, multiple lumbar and thoracic vertebral bodies. No acute vertebral body compression fractures. IMPRESSION: 1. Moderate amount of fecal material seen throughout the colon and rectum possibly related to constipation. 2. Scattered colonic diverticulosis without acute diverticulitis. 3. 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 Recommend continued clinical and imaging surveillance. 4. Small hiatal hernia. 5. Small right fat containing inguinal hernia without acute inflammation. 6. Stable appearance of multiple subcentimeter hepatic hypodensities likely representing cysts versus hemangiomas. 7. Atherosclerosis. Dictated by: Iron Muhammad M.D. on 04/25/2020 at 17:00 Approved by: Iron Muhammad M.D. on 04/25/2020 at 17:15
[2020-04-25] MEDS: SODIUM CHLORIDE 0.9% 1,000 ML 500 ML IV (16:30)
[2020-04-25] MEDS: FLEETS ENEMA 1 EACH PR (17:45)
--- NOTE | 2020-04-25 18:01 | PC.NURSE ---
pt incontinent of dark blood and some bright red blood from rectum. dr. díaz aware
[2020-04-25 18:53] LABS: Hematocrit 41.3 % (41-53); Hemoglobin 13.9 g/dL (13.5-17.5)
--- NOTE | 2020-04-25 18:57 | PC.NURSE ---
large bm after enema black with bright red and dark blood
== END 2020-04-25 20:32 | disposition home or self-care (01) ==
PROVIDERS: Emergency Provider Emergency Medicine
DX: K86.9 Disease of pancreas, unspecified (principal); K57.91 Diverticulosis of intestine, part unspecified, without perforation or abscess with bleeding; K59.00 Constipation, unspecified; I10 Essential (primary) hypertension; Z79.82 Long term (current) use of aspirin
CPT/HCPCS: 36415; 74177; 80053; 81003; 85014; 85018; 85025; 85610; 85730; 93005; 93010; 96360; 96361; 99284; 99285; Q9967

== ENCOUNTER 2020-09-07 09:11 | Inpatient (IN) | payer MEDICARE, OTHER, SELFPAY ==
[2020-09-07] VITALS (12 sets, daily range): BP systolic 100–122; BP diastolic 67–76; PULSE 75–95; RESP 17–18; TEMP 36.3–36.9; O2SAT 96–99; BMI 22.3
--- NOTE | 2020-09-07 09:18 | DI.CT.S_ITS ---
PROCEDURE: CT SOFT TISSUE NECK W CON INDICATIONS: severe swelling in anterior throat, can't swallow TECHNIQUE: After the administration of intravenous contrast, 3.0 mm axial sections acquired from the sella to the aortic arch. Additional oblique axial 3.0 mm sections acquired through the pharynx. 3 mm thick coronal and sagittal reformats were generated. For radiation dose reduction, the following was used: automated exposure control. COMPARISON: None. FINDINGS: Image quality: Excellent. Lymph nodes: No enlarged lymph nodes seen throughout the neck. Vessels: Visualized vasculature appears patent. Neck spaces: The oropharynx, nasopharynx, and pharynx demonstrate no mucosal lesions. The vocal cords, false vocal cords, pyriform sinuses, epiglottis, vallecula, and tongue base all appear normal. There is mild thickening of the platysma, left greater than right. Mild subcutaneous fat stranding within the bilateral mid/upper neck, left greater than right. Glands: The parotid and submandibular glands appear normal. Thyroid gland is grossly unremarkable. Miscellaneous: Visualized brain and orbits appear normal. Lung apices appear clear. Superficial soft tissues appear normal. Bones: No suspicious bony lesions. Visualized sinuses and mastoids appear unremarkable. IMPRESSION: 1. Subcutaneous cellulitis within the neck, left greater than right. No focal fluid collection to indicate abscess. Dictated by: Willi Claire M.D. on 09/07/2020 at 9:50 Approved by: Willi Claire M.D. on 09/07/2020 at 9:52
[2020-09-07] MEDS: KETOROLAC 30 MG/ML VIAL 15 MG IV (09:38)
[2020-09-07] MEDS: SODIUM CHLORIDE 0.9% 1,000 ML 1000 ML IV (09:38)
[2020-09-07] MEDS: DEXAMETHASONE 10 MG/ML VIAL IV (09:38)
[2020-09-07] MEDS: AMPICILLIN/SULBACTAM 3 GM 3 GM in SODIUM CHLORIDE 0.9% 100 ML IV (09:46)
[2020-09-07 09:48] LABS: Add Manual Diff / Slide Review NO; Basophils Absolute Auto 0 /uL (0-100); Basophils Percent Auto 0.2 % (0-2); Eosinophils Absolute Auto 0 /uL (0-450); Eosinophils Percent Auto 0.1 % (2-4); Hematocrit 39.7 % (41-53); Hemoglobin 13.3 g/dL (13.5-17.5); Lymphocytes Absolute Auto 600 /uL (1100-4500); Lymphocytes Percent Auto 3.6 % (25-40); Mean Corpuscular HGB Conc 33.6 % (30-36); Mean Corpuscular Hemoglobin 29.7 PG (26-34); Mean Corpuscular Volume 88.2 fL (80-100); Monocytes Absolute Auto 1300 /uL (0-900); Monocytes Percent Auto 8.4 % (3-14); Neutrophils Absolute Auto 13800 /uL (1500-7000); Neutrophils Percent Auto 87.7 % (50-75); Platelet Count 182 X10^3/uL (150-400); Red Cell Distribution Width 13.5 % (11.6-14.8); White Blood Cell Count 15.7 X10^3/uL (4.5-11.0)
--- NOTE | 2020-09-07 09:54 | ED.NECK ---
HPI - Neck Pain/Injury General Chief Complaint: Dental/Oral Stated Complaint: INFECTION IN JAW-HARD TO SWALLOW Time Seen by Provider: 09/07/20 09:15 Mode of arrival: Ambulatory Limitations: other History of Present Illness HPI Narrative: 74-year-old male nonsmoker with history of hypertension and a cognitive delay presents with pain, swelling, and redness to anterior neck worsening over the past few days. Patient developed some dental pain a few days ago and was seen and evaluated by dentist and given a prescription for Augmentin and apparently had imaging convincing for the potential of bone infection. Over the past few days the patient has developed impressive anterior neck and jaw swelling, redness and now has difficulty opening his jaw and swallowing, there is no difficulty breathing. He denies any nausea or vomiting but has had trouble eating. He has had no chest pain or shortness of breath. He denies any fever or chills. Related Data Home Medications Medication Instructions Recorded Confirmed amoxicillin 500 mg-potassium 1 tab PO TID 09/07/20 09/07/20 clavulanate 125 mg tablet ropinirole 2 mg tablet 1 mg PO BID 09/07/20 09/07/20 trospium 20 mg tablet 20 mg PO BID 09/07/20 09/07/20 Allergies Allergy/AdvReac Type Severity Reaction Status Date / Time No Known Drug Allergies Allergy Verified 04/25/20 14:59 Review of Systems Review of Systems Narrative: GENERAL: Denies chills, fatigue, malaise, fever, sweats. HEENT: See HPI RESPIRATORY: Denies dyspnea, cough, wheezing, hemoptysis, sputum. CARDIOVASCULAR: Denies chest pain, palpitations, orthopnea, edema, GASTROINTESTINAL: Denies nausea, vomiting, abdominal pain, diarrhea, constipation, melena. : Denies dysuria, frequency, incontinence, hematuria, urinary retention. MUSCULOSKELETAL: denies weakness, joint pain, or bony pain SKIN: Denies rash, skin lesions, or other NEUROLOGIC: Denies weakness, headache, numbness, change in speech, confusion, seizures, incoordination. PSYCHIATRIC: No concerning psychosocial issues. 12 point review of systems is negative except for those stated above Patient History Medical History (Updated 09/07/20 @ 15:06 by Peng Johns DO) Anoxic encephalopathy Cardiac arrest Colon cancer Myocardial infarction Prostate cancer Restless leg syndrome Surgical History History of bowel resection Family History (Updated 09/07/20 @ 12:28 by Jess Paz MD) Mother Diabetes mellitus Social History household members: children Smoking Status: Former smoker Smoking Status: Former smoker alcohol intake frequency: holidays/special occasions only Substance Use Type: does not use Exam Narrative Exam Narrative: GENERAL: [74] year old patient appears stated age. Well-developed patient, in mild distress. HEAD: Atraumatic. Normocephalic. EYES: Pupils equal round and reactive. Extraocular motions intact. No scleral icterus. No injection or drainage. ENT: Trismus, firm, indurated erythematous and warm submental and anterior neck region. Patient controlling secretions, no voice change Nose without bleeding, purulent drainage. Throat without erythema, tonsillar hypertrophy or exudate. Airway patent. NECK: Trachea midline. Non tender CARDIOVASCULAR: Regular rate and rhythm without murmurs, gallops, or rubs. RESPIRATORY: Clear to auscultation. Breath sounds equal bilaterally. No wheezes, rales, or rhonchi. GASTROINTESTINAL: Abdomen soft, non-tender, nondistended. EXTREMITIES: No edema or joint tenderness. BACK: Nontender without deformity or crepitance. No flank tenderness. NEURO: AOx3. SKIN: No rash or erythema of visible areas Initial Vital Signs Initial Vital Signs: Vital Signs Temperature 98.1 F 09/07/20 09:15 Pulse Rate 95 H 09/07/20 09:15 Respiratory Rate 18 09/07/20 09:15 Blood Pressure 115/76 09/07/20 09:15 Pulse Oximetry 96 09/07/20 09:15 Course Orders Ordered: ED Orders 09/07/20 09:10 Complete Blood Count AUTO DIFF Stat Comprehensive Metabolic Panel Stat Lactate (Lactic Acid) Stat 09/07/20 09:18 CT soft tissue neck w con Stat 09/07/20 09:25 Blood Culture Stat 09/07/20 09:40 COVID19 - ADMIT ([employer]ER swab/PCR) Stat Acetaminophen (Acetaminophen 325 Mg Tablet) 650 mg PO Q6HR PRN PRN Reason: Fever/Mild Pain (1-3) Hydrocodone Bitart/Acetaminophen (Hydrocodone/Acet 5/325 Tablet) 1 tab PO Q4HR PRN PRN Reason: Pain, Moderate (4-6) Enoxaparin Sodium (Enoxaparin 40 Mg/0.4 Ml Syringe) 40 mg SUBCUT DAILY [facility] Dextrose/Sodium Chloride (Dextrose 5%-0.45% Ns) 1,000 mls @ 100 mls/hr IV CONT [facility] Last Admin: 09/07/20 15:22 Dose: 100 mls/hr Documented by: ELISA Piperacillin Sod/Tazobactam (Sod 3.375 gm/ Sodium Chloride) 100 mls @ 25 mls/hr IV Q8H [facility] Last Admin: 09/07/20 15:21 Dose: 25 mls/hr Documented by: ELISA Ibuprofen (Ibuprofen 600 Mg Tablet) 600 mg PO Q6HR PRN PRN Reason: Fever/Mild Pain (1-3) Morphine Sulfate (Morphine 2 Mg/Ml Inj) 2 mg IV Q4HR PRN PRN Reason: Pain, Moderate (4-6) Naloxone HCl (Naloxone 0.4 Mg/Ml Vial) 0.2 mg IV Q2MIN PRN PRN Reason: Opiate Reversal Trospium 20 Mg (Tablet) 20 mg PO BID [facility] Ondansetron HCl (Ondansetron 4 Mg/2 Ml Inj) 4 mg IV Q8HR PRN PRN Reason: Nausea And Vomiting Ropinirole HCl (Ropinirole 1 Mg Tablet) 1 mg PO BID [facility] Discontinued Medications Dexamethasone (Dexamethasone 10 Mg/Ml Vial) 10 mg IV NOW ONE Stop: 09/07/20 09:19 Last Admin: 09/07/20 09:38 Dose: 10 mg Documented by: LYNDA Sodium Chloride (Normal Saline 0.9%) 1,000 mls @ 1,000 mls/hr IV BOLUS ONE Stop: 09/07/20 10:17 Last Infusion: 09/07/20 12:32 Dose: 0 mls/hr Documented by: [email or web address] Admin: 09/07/20 09:38 Dose: 1,000 mls/hr Documented by: LYNDA Ampicillin Sodium/Sulbactam (Sodium 3 gm/ Sodium Chloride) 100 mls @ 100 mls/hr IV NOW ONE Stop: 09/07/20 09:19 Last Infusion: 09/07/20 11:00 Dose: 0 mls/hr Documented by: Admin: 09/07/20 09:46 Dose: 100 mls/hr Documented by: LYNDA Ketorolac Tromethamine (Ketorolac 30 Mg/Ml Vial) 15 mg IV NOW ONE Stop: 09/07/20 09:19 Last Admin: 09/07/20 09:38 Dose: 15 mg Documented by: LYNDA Vital Signs Vital signs: Vital Signs - 8 hr 09/07/20 09:15 09/07/20 09:27 09/07/20 09:30 Temperature 98.1 F Pulse Rate 95 H 90 89 Respiratory Rate 18 Blood Pressure 115/76 106/71 Pulse Oximetry 96 96 96 09/07/20 10:00 09/07/20 10:25 09/07/20 10:30 Temperature Pulse Rate 86 85 83 Respiratory Rate Blood Pressure 114/73 116/71 115/74 Pulse Oximetry 98 98 99 09/07/20 11:00 Temperature Pulse Rate 84 Respiratory Rate Blood Pressure 122/74 Pulse Oximetry 98 MDM - Neck Pain/Injury Lab Data Result diagrams: 09/07/20 09:10 09/07/20 09:10 Labs: Lab Results 09/07/20 09/07/20 09/07/20 Range/Units 09:10 09:10 09:10 WBC 15.7 H (4.5-11.0) X10^3/uL RBC 4.50 (4.5-5.9) X10^6/uL Hgb 13.3 L (13.5-17.5) g/dL Hct 39.7 L (41-53) % MCV 88.2 (80-100) fL MCH 29.7 (26-34) PG MCHC 33.6 (30-36) % RDW 13.5 (11.6-14.8) % Plt Count 182 (150-400) X10^3/uL Neut % (Auto) 87.7 H (50-75) % Lymph % (Auto) 3.6 L (25-40) % [place] % (Auto) 8.4 (3-14) % Eos % (Auto) 0.1 L (2-4) % Baso % (Auto) 0.2 (0-2) % Neut # (Auto) 23983 H (1032-4166) /uL Lymph # (Auto) 600 L (8651-5094) /uL [place] # (Auto) 1300 H (0-900) /uL Eos # (Auto) 0 (0-450) /uL Baso # (Auto) 0 (0-100) /uL Sodium 132 L (137-145) mmol/L Potassium 3.7 (3.4-5.1) mmol/L Chloride 99 (98-107) mmol/L Carbon Dioxide 29 (22-32) mmol/L BUN 27 H (9-20) mg/dL Creatinine 0.95 (0.66-1.25) mg/dL Estimated GFR > 60.0 (>60) mL/min BUN/Creatinine Ratio 28.4 H (6-22) Glucose 111 H (80-110) mg/dL Lactate 1.0 (0.7-2.1) mmol/L Calcium 9.3 (8.4-10.2) mg/dL Total Bilirubin 0.8 (0.2-1.3) mg/dL AST 29 (17-59) IU/L ALT 21 (<50) IU/L Alkaline Phosphatase 73 (38-126) U/L Total Protein 6.3 (6.3-8.2) g/dL Albumin 3.4 L (3.5-5.0) g/dL Globulin 2.9 (1.7-4.1) g/dL Albumin/Globulin Ratio 1.2 (1.0-2.8) SARS-CoV-2 (PCR) (Negative) 09/07/20 Range/Units 09:40 WBC (4.5-11.0) X10^3/uL RBC (4.5-5.9) X10^6/uL Hgb (13.5-17.5) g/dL Hct (41-53) % MCV (80-100) fL MCH (26-34) PG MCHC (30-36) % RDW (11.6-14.8) % Plt Count (150-400) X10^3/uL Neut % (Auto) (50-75) % Lymph % (Auto) (25-40) % [place] % (Auto) (3-14) % Eos % (Auto) (2-4) % Baso % (Auto) (0-2) % Neut # (Auto) (9209-9413) /uL Lymph # (Auto) (4337-6956) /uL [place] # (Auto) (0-900) /uL Eos # (Auto) (0-450) /uL Baso # (Auto) (0-100) /uL Sodium (137-145) mmol/L Potassium (3.4-5.1) mmol/L Chloride (98-107) mmol/L Carbon Dioxide (22-32) mmol/L BUN (9-20) mg/dL Creatinine (0.66-1.25) mg/dL Estimated GFR (>60) mL/min BUN/Creatinine Ratio (6-22) Glucose (80-110) mg/dL Lactate (0.7-2.1) mmol/L Calcium (8.4-10.2) mg/dL Total Bilirubin (0.2-1.3) mg/dL AST (17-59) IU/L ALT (<50) IU/L Alkaline Phosphatase (38-126) U/L Total Protein (6.3-8.2) g/dL Albumin (3.5-5.0) g/dL Globulin (1.7-4.1) g/dL Albumin/Globulin Ratio (1.0-2.8) SARS-CoV-2 (PCR) Negative (Negative) Imaging Data Soft Tissue Neck w/Contrast: Radiologist's Impression: Vinay Bravo 74 M [address] Scan ReportSigned Patient: Vinay Bravo KMR#: [id number]: 5Acct:[id number]/Sex: 74 / MDate of Service: 09/07/20Loc: EDAccession Number: [id number] Procedure: CT soft tissue neck w con Ordering Provider: Peng Johns D.O. PROCEDURE: CT SOFT TISSUE NECK W CON INDICATIONS: severe swelling in anterior throat, can't swallow TECHNIQUE: After the administration of intravenous contrast, 3.0 mm axial sections acquired from the sella to the aortic arch. Additional oblique axial 3.0 mm sections acquired through the pharynx. 3 mm thick coronal and sagittal reformats were generated. For radiation dose reduction, the following was used: automated exposure control. COMPARISON: None. FINDINGS: Image quality: Excellent. Lymph nodes: No enlarged lymph nodes seen throughout the neck. Vessels: Visualized vasculature appears patent. Neck spaces: The oropharynx, nasopharynx, and pharynx demonstrate no mucosal lesions. The vocal cords, false vocal cords, pyriform sinuses, epiglottis, vallecula, and tongue base all appear normal. There is mild thickening of the platysma, left greater than right. Mild subcutaneous fat stranding within the bilateral mid/upper neck, left greater than right. Glands: The parotid and submandibular glands appear normal. Thyroid gland is grossly unremarkable. Miscellaneous: Visualized brain and orbits appear normal. Lung apices appear clear. Superficial soft tissues appear normal. Bones: No suspicious bony lesions. Visualized sinuses and mastoids appear unremarkable. IMPRESSION: 1. Subcutaneous cellulitis within the neck, left greater than right. No focal fluid collection to indicate abscess. Dictated by: Willi Claire M.D. on 09/07/2020 at 9:50 Approved by: Willi Claire M.D. on 09/07/2020 at 9:52 MDM Narrative Medical decision making narrative: Patient having difficulty with oral hydration and food intake given the pain and difficulty opening his mouth. He has no difficulty swallowing and no trouble with airway. Patient will require hospitalization for treatment and stabilization his condition as well as IV hydration. Discharge Plan Departure Patient Disposition: Admitted As Inpatient Clinical Impression: Cellulitis of neck Admit Date/Time: 09/07/20 11:40 Admit Provider: Jess Paz
[2020-09-07 10:01] LABS: Alanine Aminotransferase 21 IU/L (<50); Albumin 3.4 g/dL (3.5-5.0); Albumin Globulin Ratio 1.2 (1.0-2.8); Alkaline Phosphatase 73 U/L (38-126); Aspartate Aminotransferase 29 IU/L (17-59); BUN Creatinine Ratio 28.4 (6-22); Bilirubin Total 0.8 mg/dL (0.2-1.3); Blood Urea Nitrogen 27 mg/dL (9-20); Calcium 9.3 mg/dL (8.4-10.2); Carbon Dioxide 29 mmol/L (22-32); Chloride 99 mmol/L (98-107); Estimated Glomerular Filt Rate > 60.0 mL/min (>60); Globulin 2.9 g/dL (1.7-4.1); Glucose 111 mg/dL (80-110); HEMOLYSIS < 15 (0-50); Potassium 3.7 mmol/L (3.4-5.1); Sodium 132 mmol/L (137-145); Total Protein 6.3 g/dL (6.3-8.2)
[2020-09-07 11:25] LABS: COVID19 - ADMIT (NP swab/PCR) Negative (Negative)
--- NOTE | 2020-09-07 12:21 | PM.HP.1 ---
History of Present Illness History of Present Illness Chief complaint: INFECTION IN JAW-HARD TO SWALLOW Narrative: Patient is a delightful 74 y/o male with a history of Myocardial Infarction followed by Cardiac Arrest with resulting Anoxic Brain injury, history of prostate cancer, restless legs syndrome who was well until 5 days ago. Patient developed dental pain and was seen by a Dentist on . He was told he had a dental abcess, needed a tooth extracted and likely had a bone infection. The patient was scheduled for a tooth extraction on Wednesday but the appointment had to be rescheduled for Wednesday as the Dentist was not available. On Wednesday he developed submandibular swelling. His Daughter in Law spoke to the dental office regarding this and they prescribed augmentin for the swelling. This morning he complained of inability to swallow and was brought to the Emergency Department for evaluation. In the ED patient was found to have submandibular swelling, an elevated white count of [address] of the Neck revealed cellulitis of the neck with no focal fluid collection or indications of abcess. Given how quickly the swelling increased and patients inability to swallow he was admitted to the hospital for definitive treatment. Patient History Medical History (Updated 09/07/20 @ 12:28 by Jess Paz MD) Anoxic encephalopathy Cardiac arrest Colon cancer Myocardial infarction Prostate cancer Restless leg syndrome Surgical History History of bowel resection Family & Social History Family History (Updated 09/07/20 @ 12:28 by Jess Paz MD) Mother Diabetes mellitus Safety & Behavioral: Feels Safe in Current Yes Environment Been Physically Hurt or No Threatened By a Person Tobacco & Substance use: Smoking Status Former smoker alcohol intake frequency holiday/special occasion Substance Use Type does not use Meds Home Medications and Allergies Home Medications Medication Instructions Recorded Confirmed Type amoxicillin 500 mg-potassium 1 tab PO TID 09/07/20 09/07/20 History clavulanate 125 mg tablet ropinirole 2 mg tablet 1 mg PO BID 09/07/20 09/07/20 History trospium 20 mg tablet 20 mg PO BID 09/07/20 09/07/20 History Allergies Allergy/AdvReac Type Severity Reaction Status Date / Time No Known Drug Allergies Allergy Verified 04/25/20 14:59 Review of Systems Review of Systems Narrative: 10 point review of system is negative except as described above Exam Vital Signs (past 8 hours): - 09/07/20 09:15 09/07/20 09:27 09/07/20 09:30 Temperature 98.1 F Pulse Rate 95 H 90 89 Respiratory Rate 18 Blood Pressure 115/76 106/71 Pulse Oximetry 96 96 96 09/07/20 10:00 09/07/20 10:25 09/07/20 10:30 Temperature Pulse Rate 86 85 83 Respiratory Rate Blood Pressure 114/73 116/71 115/74 Pulse Oximetry 98 98 99 09/07/20 11:00 Temperature Pulse Rate 84 Respiratory Rate Blood Pressure 122/74 Pulse Oximetry 98 Oxygen Delivery Method Room Air Narrative Exam Narrative: Pleasant elderly male lying in bed in [facility] Other: NC/AT, EOMI, Oral pharynx: moist mucus membranes, poor dentition of all teeth, no obvious abcess, redness or drainage Submandibular area of neck swollen, tender to palpation, no significant erythema. The area is endurated, about 7 cm by 5 cm, no fluctuance noted there is shoddy posterior cervical adenopathy Eyes Other: EOMI Neck Other: see above Resp Other: Lungs: clear to auscultation Cardio Other: RRR nl Sl S2 GI Other: Abd: soft/ non tender/ non distended, no HSM, no rebound tenderness no boardlike rigidity Neuro Other: Cranial Nerves intact, Strength symmetric and equal, sensation grossly intact, speech is somewhat halting and delayed patient answers questions appropriately but is somewhat slow to respond Extrem Other: No edema Psych Other: No hallucinations, tremors, tics Objective Labs Result Diagrams: 09/07/20 09:10 09/07/20 09:10 Labs: Laboratory Results - last 24 hr 09/07/20 09/07/20 09/07/20 09:10 09:10 09:10 WBC 15.7 H RBC 4.50 Hgb 13.3 L Hct 39.7 L MCV 88.2 MCH 29.7 MCHC 33.6 RDW 13.5 Plt Count 182 Neut % (Auto) 87.7 H Lymph % (Auto) 3.6 L [place] % (Auto) 8.4 Eos % (Auto) 0.1 L Baso % (Auto) 0.2 Neut # (Auto) 66064 H Lymph # (Auto) 600 L [place] # (Auto) 1300 H Eos # (Auto) 0 Baso # (Auto) 0 Sodium 132 L Potassium 3.7 Chloride 99 Carbon Dioxide 29 BUN 27 H Creatinine 0.95 Estimated GFR > 60.0 BUN/Creatinine Ratio 28.4 H Glucose 111 H Lactate 1.0 Calcium 9.3 Total Bilirubin 0.8 AST 29 ALT 21 Alkaline Phosphatase 73 Total Protein 6.3 Albumin 3.4 L Globulin 2.9 Albumin/Globulin Ratio 1.2 SARS-CoV-2 (PCR) 09/07/20 09:40 WBC RBC Hgb Hct MCV MCH MCHC RDW Plt Count Neut % (Auto) Lymph % (Auto) [place] % (Auto) Eos % (Auto) Baso % (Auto) Neut # (Auto) Lymph # (Auto) [place] # (Auto) Eos # (Auto) Baso # (Auto) Sodium Potassium Chloride Carbon Dioxide BUN Creatinine Estimated GFR BUN/Creatinine Ratio Glucose Lactate Calcium Total Bilirubin AST ALT Alkaline Phosphatase Total Protein Albumin Globulin Albumin/Globulin Ratio SARS-CoV-2 (PCR) Negative Assessment & Plan Assessment & Plan narrative: 74 y/o male admitted with Neck Cellulitis -This is likely extension from a tooth abscess -Patient ( reportedly) has OCD and repetitively reuses dental floss -History of poor dentition, scheduled Wednesday for tooth extraction -No evidence of drainable collection of Fluid -CT confirms cellulitis -WBC 15 -will check procalcitonin -Start IV fluids as patient is unable to eat secondary to pain -Full liquid diet -IV Zosyn for now -follow clinical exam for resolution of swelling, progression,etc -Given one dose of Decadron in ED, will hold on further decadron now. Expect this will cause elevation of WBC History of Prostate Cancer -some chronic urinary frequency -will continue Trospium Restless Legs Syndrome -Continue ropinirole Patient's son, Ki is his DPOA, he is DNR/DNR and will note this in his record according. I have reviewed all medications, utilized all options to review current and prior medications. His medication reconciliation is correct as written.
[2020-09-07] MEDS: PIPERACILLIN/TAZO 3.375 GM in SODIUM CHLORIDE 0.9% 100 ML 25 ML IV ×2 (15:21→23:29)
[2020-09-07] MEDS: DEXTROSE 5%-0.45% NS 1,000 ML 100 ML IV (15:22)
--- NOTE | 2020-09-07 16:46 | PC.NURSE ---
Patient is alert and oriented, resting in bed and watching TV. He is MCGRATH and has a pronounced stutter. He is A&O to name and situation. He currently reports no pain, however, states he has discomfort r/t his restless leg syndrome. He also reports significant insomnia also r/t the restless leg syndrome. His lungs sounds were clear and equal bilaterally, heart rate is regular with clear S1 and S2. Last BM was 09/06, with hypoactive bowel sounds. Skin is warm, dry, and intact. Moderate swelling in his anterior sub-mandibular region. Piperacillin/Tazo is currently running at 25 mls/hr in his left forearm IV. Patient reminded by this student nurse to use call light for any needs. Bed is low, locked, and alarmed.
[2020-09-07] MEDS: ROPINIROLE 1 MG TABLET PO (20:03)
[2020-09-07] MEDS: IBUPROFEN 600 MG TABLET PO (20:03)
--- NOTE | 2020-09-07 20:11 | PC.NURSE ---
Pt awake and alert resting quietly in bed. Is hard of hearing and stutters significantly with speech, but is able to make needs and wants known to staff. Requires patient listening. BL calf scd's in place. Pt is able to manage own secretions and airway. Significant edema to area beneath chin. Pt admits to pain 4/10 and difficulty with chewing. On full liquid diet. Ibuprofen to manage discomfort. Pt requests protein drink and was given Ensure.
[2020-09-07] MEDS: ACETAMINOPHEN 325 MG TABLET 650 MG PO (21:56)
[2020-09-07] MEDS: HYDROCODONE/ACET 5/325 TABLET 1 TAB PO (21:56)
[2020-09-08] VITALS (9 sets, daily range): BP systolic 109–125; BP diastolic 68–92; PULSE 68–84; RESP 16–20; TEMP 36.1–36.8; O2SAT 94–99
[2020-09-08] MEDS: HYDROCODONE/ACET 5/325 TABLET 1 TAB PO ×3 (05:39→21:58)
[2020-09-08 08:12] LABS: Hematocrit 36.7 % (41-53); Hemoglobin 12.2 g/dL (13.5-17.5); Mean Corpuscular HGB Conc 33.1 % (30-36); Mean Corpuscular Hemoglobin 29.3 PG (26-34); Mean Corpuscular Volume 88.6 fL (80-100); Platelet Count 187 X10^3/uL (150-400); Red Blood Cell Count 4.15 X10^6/uL (4.5-5.9); Red Cell Distribution Width 13.4 % (11.6-14.8); White Blood Cell Count 16.3 X10^3/uL (4.5-11.0)
[2020-09-08 08:23] LABS: BUN Creatinine Ratio 29.4 (6-22); Blood Urea Nitrogen 20 mg/dL (9-20); Calcium 8.9 mg/dL (8.4-10.2); Carbon Dioxide 29 mmol/L (22-32); Chloride 101 mmol/L (98-107); Estimated Glomerular Filt Rate > 60.0 mL/min (>60); Glucose 158 mg/dL (80-110); HEMOLYSIS < 15 (0-50); Potassium 4.4 mmol/L (3.4-5.1); Sodium 132 mmol/L (137-145)
[2020-09-08] MEDS: PIPERACILLIN/TAZO 3.375 GM in SODIUM CHLORIDE 0.9% 100 ML 25 ML IV ×3 (08:27→23:38)
[2020-09-08] MEDS: ENOXAPARIN 40 MG/0.4 ML SYRINGE SUBCUT (08:28)
[2020-09-08] MEDS: ROPINIROLE 1 MG TABLET PO ×2 (08:28→20:44)
--- NOTE | 2020-09-08 10:14 | CM.DANOTE ---
DCP: Case received, EMR reviewed and met with patient. Introduced self and role Was able to obtain information from patient regarding his baseline activity status prior to hospitalization, as well as his current living situation. DCP assessment completed with information currently available. Patient is a 74 year old male who admitted yesterday morning to the care of the hospitalist team. PCP: None at this time, according to patient. Payer: confirmed: Medicare/[employer]. Patient came to the hospital via private vehicle secondary to having swelling to his throat, difficulty swallowing. According to notes, patient has seen his dentist on Wednesday, and was started on Augmention for abcess of his tooth. Patient had developed an increase in inflammation, with difficulty swallowing. He was diagnosed with subcutaneous cellulitis within his neck, and is currently on IV antibiotics. According to team rounds, anticipate that he will be here for another day or two, and home with oral. Met with patient in his room. He is alert and oriented, has difficulty with words, stutters before he can get some sentences out. Patient indicated that he has history of CVA, and had been at [facility] for some time. Confirmed that he resides in [place] with one of his twin sons, Ki, and his , who is patient's primary caregiver. Patient indicated that he does not drive, his daughter in law takes him to appointments. Asked him if he had a primary provider, and he indicated that he doesn't, because his [id number] would need to drive him to appointments, and doesn't want to rely on her. Offered to bring him in resources for providers, but he didnt' think he needed it. P: DCP to continue to follow, and will be available for any resources needed. He should be able to go hlme when he is medically stable. Thea Anderson, RN/Obstetrics Nurse Practitioner
[2020-09-08] MEDS: VANCOMYCIN 1,000 MG/200 ML PIGGYBACK 200 MG IV ×2 (11:52→20:44)
[2020-09-08] MEDS: DEXTROSE 5%-0.45% NS 1,000 ML 100 ML IV ×2 (11:53→21:36)
--- NOTE | 2020-09-08 13:59 | PM.PN.1 ---
Subjective Subjective Date Patient Seen: 09/08/20 Time Patient Seen: 08:00 Interval history: Today he still has some neck pain. He feels it is improved. He is able to drink down fluids and soft foods, but he has some discomfort with pain in his teeth. He has no trouble breathing. Exam Vital Signs (past 8 hours): - 09/08/20 08:00 09/08/20 11:48 Temperature 97.6 F 98.3 F Pulse Rate 71 77 Respiratory Rate 20 20 Blood Pressure 125/78 114/74 Pulse Oximetry 99 99 Oxygen Delivery Method Room Air Oxygen Flow Rate 0 Narrative Exam Narrative: GEN: no acute distress HEENT: moist mucus membranes, poor dentition, no obvious fluctuance, swelling, erythema NECK: Submandibular neck swollen without erythema, has induration, no fluctuance, crepitus, and only mild pain, has mild adenopathy felt PULM: clear to auscultation CV: regular rate and rhythm with no murmurs ABD: soft, non tender, non distended Objective Labs Result Diagrams: 09/08/20 08:10 09/08/20 08:10 Labs: Laboratory Results - last 24 hr 09/08/20 09/08/20 08:10 08:10 WBC 16.3 H RBC 4.15 L Hgb 12.2 L Hct 36.7 L MCV 88.6 MCH 29.3 MCHC 33.1 RDW 13.4 Plt Count 187 Sodium 132 L Potassium 4.4 Chloride 101 Carbon Dioxide 29 BUN 20 Creatinine 0.68 Estimated GFR > 60.0 BUN/Creatinine Ratio 29.4 H Glucose 158 H Calcium 8.9 PFSH Medical History (Updated 09/07/20 @ 15:06 by Peng Johns DO) Anoxic encephalopathy Cardiac arrest Colon cancer Myocardial infarction Prostate cancer Restless leg syndrome Surgical History History of bowel resection Family History (Updated 09/07/20 @ 12:28 by Jess Paz MD) Mother Diabetes mellitus Social History household members: children Smoking Status: Former smoker Assessment & Plan Assessment & Plan narrative: 74 y/o male admitted with neck cellulitis 1. Acute neck cellulitis -likely extension of tooth abscess -CT shows platysmal swelling, and subcutaneous edema, but no evidence of deep neck space infection -no airway compromise -no evidnece of lauryn's angina -no evidence of fluid collection -WBC initially 15.7, now slightly higher at 16.3, but did get decadron in ED -History of poor dentition, scheduled Wednesday for tooth extraction -will check procalcitonin -Start IV fluids as patient is unable to eat secondary to pain -Full liquid diet -IV Zosyn, vanc for now -follow clinical exam for resolution of swelling, progression,etc 2. History of Prostate Cancer -some chronic urinary frequency -will continue Trospium 3. Restless Legs Syndrome -Continue ropinirole Patient's son, Ki is his DPOA, he is DNR/DNR and will note this in his record according.
[2020-09-08] MEDS: ACETAMINOPHEN 325 MG TABLET 650 MG PO (16:01)
[2020-09-08] MEDS: IBUPROFEN 600 MG TABLET PO (19:13)
--- NOTE | 2020-09-08 19:19 | PC.NURSE ---
Addendum entered by Dolly Reis R.N. 09/08/20 22:35: Ice to anterior neck/chin helpful per pt. Pain meds as per emar. IV antibiotics infusing as ordered without difficulty. Pt struggles with speech, but is able to make needs and wants known to staff members. Original Note: Pt up in chair for evening meal. Able to take liquid nourishment without noted difficulty. Ensure provided as per last evening's request by pt. Admits to pain to mouth/face and was given meds as per emar. Discussion with JACK Walls and sylvester to place ice to edematous neck. Head of bed remains elevated when in bed. Oral care provided. Inspected mouth and no profound edema noted. Meds crushed in applesauce.
--- NOTE | 2020-09-08 19:55 | PC.NURSE ---
1700- Patient is in bed watching TV. He is alert to person, situation but confused on place thinking he is at [facility]. He complains of increased discomfort and pain in his neck as well as increasing difficulty in swallowing. There is obvious submandibular swelling, with swelling more prominent on the left then right side. He is unable to place a numerical value on pain, but says it is very intense. PO Vicodin and Tylenol administered as per MD PRN order. Lung sounds were clear and equal in all posterior moore, and denies SOB. Clear S1 & S2 heart sounds. He remains in bed resting with call light within in reach.
[2020-09-08] MEDS: TROSPIUM 20 MG 20 EACH PO (20:44)
[2020-09-09] VITALS (8 sets, daily range): BP systolic 106–138; BP diastolic 68–88; PULSE 83–103; RESP 16–18; TEMP 36.4–38.1; O2SAT 95–97
[2020-09-09 05:16] LABS: Hematocrit 36.9 % (41-53); Hemoglobin 12.1 g/dL (13.5-17.5); Mean Corpuscular HGB Conc 32.8 % (30-36); Mean Corpuscular Hemoglobin 29.2 PG (26-34); Platelet Count 202 X10^3/uL (150-400); Red Blood Cell Count 4.15 X10^6/uL (4.5-5.9); Red Cell Distribution Width 13.8 % (11.6-14.8); White Blood Cell Count 13.9 X10^3/uL (4.5-11.0)
[2020-09-09 05:33] LABS: BUN Creatinine Ratio 20.8 (6-22); Blood Urea Nitrogen 15 mg/dL (9-20); Calcium 8.8 mg/dL (8.4-10.2); Carbon Dioxide 31 mmol/L (22-32); Chloride 103 mmol/L (98-107); Estimated Glomerular Filt Rate > 60.0 mL/min (>60); Glucose 126 mg/dL (80-110); HEMOLYSIS < 15 (0-50); Potassium 4.8 mmol/L (3.4-5.1); Sodium 136 mmol/L (137-145)
[2020-09-09 05:50] LABS: Procalcitonin 0.26 ng/mL (<0.5)
[2020-09-09] MEDS: PIPERACILLIN/TAZO 3.375 GM in SODIUM CHLORIDE 0.9% 100 ML 25 ML IV ×3 (07:38→23:45)
[2020-09-09] MEDS: ENOXAPARIN 40 MG/0.4 ML SYRINGE SUBCUT (07:41)
[2020-09-09] MEDS: ROPINIROLE 1 MG TABLET PO ×2 (07:41→20:57)
[2020-09-09] MEDS: TROSPIUM 20 MG 20 EACH PO (07:42)
[2020-09-09] MEDS: VANCOMYCIN 1,000 MG/200 ML PIGGYBACK 200 MG IV (08:15)
--- NOTE | 2020-09-09 10:29 | DI.CT.S_ITS ---
PROCEDURE: CT SOFT TISSUE NECK W CON INDICATIONS: neck cellulitis, worse swelling underneath chin TECHNIQUE: After the administration of intravenous contrast, 3.0 mm axial sections acquired from the sella to the aortic arch. Additional oblique axial 3.0 mm sections acquired through the pharynx. 3 mm thick coronal and sagittal reformats were generated. For radiation dose reduction, the following was used: automated exposure control. COMPARISON: [facility], CT, CT SOFT TISSUE NECK W CON, 09/07/2020, 10:06. FINDINGS: Image quality: Excellent. Lymph nodes: Borderline prominent bilateral cervical lymph nodes are seen, without iris enlargement. Vessels: Visualized vasculature appears patent. The right jugular vein is noted to be prominent, yet this is not regarded to be pathologic. Neck spaces: Within the submental region, there is worsening soft tissue swelling seen. There is now a fluid collection seen within the area of inflammatory change that measures 3.5 x 3.4 by 3.5 cm. Mild rim enhancement can be seen along the superior margin of this fluid collection. There is an additional fluid collection seen along the right submandibular region that measures 2.2 x 0.7 cm in greatest axial dimension, with a craniocaudal extent of 1.4 cm. The oropharynx, nasopharynx, and pharynx demonstrate no mucosal lesions. The vocal cords, false vocal cords, pyriform sinuses, epiglottis, vallecula, and tongue base all appear normal. Glands: The parotid and submandibular glands appear normal. Thyroid gland is small in size. Miscellaneous: Visualized brain and orbits appear normal. Lung apices appear clear. Superficial soft tissues appear normal. Bones: No suspicious bony lesions. Visualized sinuses and mastoids appear unremarkable. Moderate cervical spine degenerative changes can be seen. IMPRESSION: There is now seen a 3.5 cm fluid collection seen within the central submandibular region. Differential diagnosis includes early abscess versus late phlegmon. There is an additional right perimandibular fluid collection seen, which is suspicious for abscess that measures up to 2.2 cm. Please consider ENT consultation. Dictated by: Keon Ford M.D. on 09/09/2020 at 10:09 Approved by: Keon Ford M.D. on 09/09/2020 at 10:13
[2020-09-09] MEDS: DEXTROSE 5%-0.45% NS 1,000 ML 100 ML IV (12:20)
--- NOTE | 2020-09-09 13:59 | PM.PN.1 ---
Subjective Subjective Date Patient Seen: 09/09/20 Time Patient Seen: 08:00 Interval history: Today he continues to have neck pain. He notes slightly more swelling beneath the chin. He has no fever/chills. He has no trouble breathing. He has no difficulty speaking. He is able to swallow liquids and soft foods. Exam Vital Signs (past 8 hours): - 09/09/20 07:00 09/09/20 07:30 09/09/20 11:30 Temperature 97.6 F 98.2 F Pulse Rate 88 97 H Respiratory Rate 18 18 Blood Pressure 134/88 138/85 Pulse Oximetry 97 97 97 Oxygen Delivery Method Room Air Oxygen Flow Rate 0 Narrative Exam Narrative: GEN: no acute distress HEENT: moist mucus membranes, poor dentition, no obvious fluctuance, swelling, erythema NECK: Submandibular neck swollen without erythema, has induration, no fluctuance, crepitus, and only mild pain, has mild adenopathy felt PULM: clear to auscultation CV: regular rate and rhythm with no murmurs ABD: soft, non tender, non distended Objective Labs Result Diagrams: 09/09/20 05:00 09/09/20 05:00 Labs: Laboratory Results - last 24 hr 09/08/20 09/09/20 09/09/20 18:20 05:00 05:00 WBC 13.9 H RBC 4.15 L Hgb 12.1 L Hct 36.9 L MCV 89.0 MCH 29.2 MCHC 32.8 RDW 13.8 Plt Count 202 Sodium 136 L Potassium 4.8 Chloride 103 Carbon Dioxide 31 BUN 15 Creatinine 0.72 Estimated GFR > 60.0 BUN/Creatinine Ratio 20.8 Glucose 126 H Calcium 8.8 Procalcitonin Nasal Screen MRSA (PCR) Negative for mrsa 09/09/20 05:00 WBC RBC Hgb Hct MCV MCH MCHC RDW Plt Count Sodium Potassium Chloride Carbon Dioxide BUN Creatinine Estimated GFR BUN/Creatinine Ratio Glucose Calcium Procalcitonin 0.26 Nasal Screen MRSA (PCR) [facility] Medical History (Updated 09/07/20 @ 15:06 by Peng Johns DO) Anoxic encephalopathy Cardiac arrest Colon cancer Myocardial infarction Prostate cancer Restless leg syndrome Surgical History History of bowel resection Family History (Updated 09/07/20 @ 12:28 by Jess Paz MD) Mother Diabetes mellitus Social History household members: children Smoking Status: Former smoker Assessment & Plan Assessment & Plan narrative: 74 y/o male admitted with neck cellulitis 1. Acute neck cellulitis -likely extension of tooth abscess -CT shows platysmal swelling, and subcutaneous edema, but no evidence of deep neck space infection -no airway compromise -no evidnece of lauryn's angina -no evidence of fluid collection -WBC initially 15.7, now slightly better at 13 -History of poor dentition, was scheduled Wednesday for tooth extraction -Start IV fluids as patient not eating well secondary to pain -Full liquid diet -IV Zosyn, vanc for now -exam today shows increased swelling below his jaw/chin, will repeat neck CT scan to evaluate for developing abscess -follow clinical exam for resolution of swelling, progression,etc 2. History of Prostate Cancer -some chronic urinary frequency -will continue Trospium 3. Restless Legs Syndrome -Continue ropinirole 4. History of anoxic encephalopathy from a cardiac arrest Patient's son, Ki is his DPOA, he is DNR/DNR and will note this in his record according.
--- NOTE | 2020-09-09 15:06 | PC.NURSE ---
A&Ox4. VSS. Pain 2-3/10 in chin. Chin is red, swollen, and tender to palpation. SCDs on while in bed, removed for activity. Full liquid diet. SBA for urinal and walking. D5 0.45% NS running at 100 ml/hr. Call light within reach, bed low.
[2020-09-09] MEDS: MORPHINE 2 MG/ML INJ IV (17:37)
--- NOTE | 2020-09-09 17:44 | ST.IPCSEOM ---
Visit Care Team Role Provider Type Peng Johns DO Emergency Provider Physician Referring Provider Specialty: Emergency Medicine Address: [address] [place] [address], [id number] Email: [email or web address] Jess Paz MD Admit Provider Physician Attending Provider Specialty: Internal Medicine Address: [address] [place] [address], [id number] Email: [email or web address] Diagnoses Cellulitis of neck (09/07/20) Past Medical History (Last Updated 09/07/20 @ 12:28 by Jess Paz MD) Anoxic encephalopathy (Medical) Cardiac arrest (Medical) Colon cancer (Medical) History of bowel resection (Medical) Myocardial infarction (Medical) Prostate cancer (Medical) Restless leg syndrome (Medical) Speech-Language Pathology Swallow Evaluation MACHINE II ENGRAVER Clinical Instructor Line Start: 09/09/20 17:05 Freq: Status: Active Protocol: Document 09/09/20 17:05 [place] (Rec: 09/09/20 17:05 [place] [email or web address]) Clinical Instructor Signature Clinical Instructor Clinical Instructor Yes MACHINE II ENGRAVER Clinical Swallow Evaluation Start: 09/09/20 09:42 Freq: Status: Active Protocol: Document 09/09/20 09:43 EB (Rec: 09/09/20 10:45 EB [email or web address]) Clinical Swallow Evaluation Session Time Visit Start Time 09:00 Visit Stop Time 09:25 Total Visit Minutes 25 Referral Referring Provider Osmani Lugo MD Reason for Referral Difficulty chewing and swallowing Setting Assessment Location Acute Care Visit Type Note Type Initial evaluation Next Note Type Next Note Type Treatment Note Patient Information Identification Type Name History Per doctor's History and Physical report: Patient is a 74 y/o male with a history of Myocardial Infarction followed by Cardiac Arrest with resulting Anoxic Brain injury, history of prostate cancer, restless legs syndrome who was well until 5 days ago . Patient developed dental pain and was seen by a Dentist on . He was told he had a dental abcess, needed a tooth extracted and likely had a bone infection. The patient was scheduled for a tooth extraction on Wednesday but the appointment had to be rescheduled for Wednesday as the Dentist was not available. On Wednesday he developed submandibular swelling. His Daughter in Law spoke to the dental office regarding this and they prescribed augmentin for the swelling. This morning he complained of inability to swallow and was brought to the Emergency Department for evaluation. In the ED patient was found to have submandibular swelling, an elevated white count of [address] of the Neck revealed cellulitis of the neck with no focal fluid collection or indications of abcess. Given how quickly the swelling increased and patients inability to swallow he was admitted to the hospital for definitive treatment. Subjective Observations Pt was sitting upright in bed upon MACHINE II ENGRAVER and MACHINE II ENGRAVER student arrival. Pt reported pain and difficulty swallowing, primarily with solids. Pt was intelligible and language appeared to be WFL in conversation however pt inconsistently demonstrated dysfluencies throughout assessment. This dysfluency could be a result of the pt's previous Anoxic Brain injury. When asked if he has noticed any changes in his speech, pt reported that he does feel like it's different but didn' t specify what aspects are affected. Reported by Patient Location Neck Other Symptoms Difficulty swallowing solids, Pain on swallowing Comment Pt reported that since the onset of his infection and swelling, chewing and swallowing solid food has been painful. Current Diet Thin liquids Baseline Feeding Method Independent in self-feeding Patient Questionnaire No Objective Assessment Mental Status Alert,Responsive,Cooperative Dentition Missing teeth,Decay Lip Function Within normal limits Observation of Lips at Rest Symmetrical Lip Retraction Within normal limits Tongue Function Mild impairment Observations of Tongue at Rest Abnormal color,Involuntary movement(s) Tongue Protrusion Within normal limits Tongue Lateralization Within normal limits Jaw Function Within normal limits Jaw Opening Within normal limits Jaw Closing Within normal limits Jaw Lateralization Reduced range of motion Hard/Soft Palate Function Mild impairment Observations of Hard/Soft Palate Lower on the right side Nasality Within normal limits Phonation Within normal limits Respiratory Sufficiency Within normal limits Comment All of pt's dentition was decayed with several teeth missing, pt currently has submandibular swelling likely due to infection from his tooth abscess. When told to protrude his tongue, white discoloration was noted on the posterior portion of the tongue as well as tongue tremors. When asked about the tremors, pt did not seem to understand what MACHINE II ENGRAVER student was referring to; pt also seemed to be hard of hearing as MACHINE II ENGRAVER student had to talk loudly for pt to understand and answer questions. Pt had difficulty with jaw lateralization, needing to move his whole head in order to complete the instruction; this could be due to the pain and swelling he is currently experiencing. Soft palate did elevate, however, the right side of pt's soft palate did not elevate as much as the left; should be noted that right side of the mouth is the side with the apparent tooth abscess. Food and Liquid Trials Position During Assessment Upright (90 degrees),In bed Liquids Trialed Ice chips,Thin Solids Trialed Puree Administration Type Tea spoon,Cup single sip,Self- feeding Oral Impairment Moderately impaired Oral Phase Comments Unable to trial solids due to reported pain during chewing. Pharyngeal Impairment Moderately impaired Pharyngeal Phase Comments Unable to trial solids due reported pain during swallowing. Results Only thin liquids and puree administered due to pt discomfort. With the trials presented, pt's swallow appeared to be WFL. No obvious signs of penetration or aspiration were noted and pt's vocal quality remained clear throughout assessment. Pt independently utilized a double swallow while trialing thin liquids as well as independently identified the importance of taking small bites/sips at a slow rate. Pt would benefit from further assessment as infection resolves to determine POC. Pt would also benefit from receiving education RE the importance of dental hygiene in lowering the risk for developing aspiration pneumonia. Ongoing assessment of speech/language is warranted to assess pt's fluency and further guide POC. Findings Swallowing Function Oropharyngeal phase dysphagia Swallowing Function Comments Pt is unable to chew or swallow solids at this time due to pain Severity of Swallow Impairment Moderately impaired Prognosis Good Based on Cognitive status,Family support,Duration of symptoms/ severity Impact on Safety and Functioning Risk for inadequate nutrition/ hydration Recommendations Swallowing Treatment Yes Duration Duration of hospital stay Recommended Solids Puree Recommended Liquids Thin Safety Precautions/Swallowing Reduce distractions,Remain Recommendations upright (90 degrees) during all oral intake,Small bites and sips when eating,Slow rate ; swallow between bites, Multiple swallows Medication Recommendations As Tolerated Discharge Recommendations Outpatient therapy Referrals Recommended Referrals Dietary Education Patient/Caregiver Education Described results of evaluation,Patient expressed understanding of evaluation, Patient expressed agreement with goals & treatment plans, Patient expressed understanding of safety precautions,Patient expressed understanding of feeding recommendations,Patient requires further education/ training Goals Short-term Goals 1. Pt will participate in further swallow evaluation to determine least restrictive diet once pain and swelling is reduced. 2. Pt will demonstrate understanding of penetration/ aspiration precautions and importance of good oral hygiene for reducing risk of aspiration pneumonia. 3. Pt will participate in speech/language evaluation to determine current level of impairment and guide POC. Long-term Goals 1. Pt will tolerate least restrictive diet without demonstrating overt s/sx of aspiration. 2. Patient will masticate food adequately to safely consume least restrictive diet.
[2020-09-09] MEDS: ACETAMINOPHEN 325 MG TABLET 650 MG PO (17:52)
--- NOTE | 2020-09-09 19:11 | PM.OP.1 ---
Operative Date/Time/Diagnoses Date of procedure: 09/09/20 Time of procedure: 17:00 Pre-op diagnosis: Deep submental neck abscess Post-op diagnosis: same Procedure & Clinicians Procedure: complex incision and drainage deep submental neck abscess Same procedure as scheduled: Yes Indications: as above, failure of medical therapy Surgeon: Edgar Russell Click Yes if Unassisted: Yes Anesthesia Type: Local Operative Notes Findings: 5 cm irregular abscess cavity with multiple CC iris purulence expressed, culture taken Closure Type: not applicable Specimen(s): other Estimated Blood Loss (mL): 5 Procedure in detail: following verbal consent, the skin overlying the submental swelling was cleansed with alcohol and infiltrated horizontally with 2% lidocaine 1 100,000 epinephrine. An 18 gauge needle and syringe aspirated a scant amount of purulence. After prepping with Betadine, a 15 blade performed a transverse 2 cm incision into the abscess cavity was entered. I then probed deeper into the cavity with a hemostat and cotton-tipped applicator until all loculations were interrupted. Manual pressure expressed multiple mL of purulence, culture was taken. I then irrigated the abscess cavity with Betadine and further expressed manually over 15 minutes more purulence. A Savannah drain was placed deep into the wound and sutured with a single 4-0 nylon. A bandage was applied. He tolerated well without known complication. Post-operative Condition: stable Plan for aftercare: wound care, change dressings as needed, maintain drain likely until removed as outpatient
--- NOTE | 2020-09-09 19:19 | PM.OP.1 ---
Operative Date/Time/Diagnoses Date of procedure: 09/09/20 Time of procedure: 17:00 Pre-op diagnosis: Intraoral abscess Post-op diagnosis: same Procedure & Clinicians Procedure: simple incision and drainage right lateral mandibular intraoral abscess Same procedure as scheduled: Yes Indications: as above, failure of medical therapy Surgeon: Edgar Russell Click Yes if Unassisted: Yes Anesthesia Type: Local Operative Notes Findings: 2 mL abscess cavity with iris purulence cultured and evacuated Closure Type: not applicable Estimated Blood Loss (mL): 5 Procedure in detail: following verbal consent, the mucosa overlying the significantly fluctuant area lateral to the right mandible intraorally was infiltrated with 2% lidocaine 1 100,000 epinephrine. A 15 blade incised from posterior to anterior 1 cm and the cavity was evacuated after culture was taken including suctioning within the cavity itself. Tolerated well without known complication. Complications: none Post-operative Condition: stable Plan for aftercare: Await culture results, may gargle with saline if desired.
--- NOTE | 2020-09-09 19:22 | PM.CN ---
History of Present Illness Consult details Date Patient Seen: 09/09/20 Time Patient Seen: 17:00 Chief complaint: INFECTION IN JAW-HARD TO SWALLOW Reason for consult: needs incision and drainage of neck abscess Requesting provider: Osmani Lugo Narrative: 74-year-old male was admitted to [facility] through the emergency room on 09/07 for progressive submental swelling. He evidently had seen his dentist 09/05 although now does not recall that. There was evidence of a developing dental abscess at that point, eventually placed on Augmentin but the swelling progressed. initial neck CT report described evidence of cellulitis but no fluid collection. During the hospital stay, despite vancomycin and Zosyn, submental swelling progressed until repeated neck CT with contrast from today, 09/09/2020 showing a 3.5 cm submental abscess as well as a fluid collection lateral to the right mandible. No significant airway obstruction. consultation requested for possible incision and drainage of each. Denies throat pain or dysphagia, no hoarseness or airway obstruction. No other ENT complaints. White count 13.9 today, slightly decreased from admission. Meds Home Medications and Allergies Home Medications Medication Instructions Recorded Confirmed Type amoxicillin 500 mg-potassium 1 tab PO TID 09/07/20 09/07/20 History clavulanate 125 mg tablet ropinirole 2 mg tablet 1 mg PO BID 09/07/20 09/07/20 History trospium 20 mg tablet 20 mg PO BID 09/07/20 09/07/20 History Allergies Allergy/AdvReac Type Severity Reaction Status Date / Time No Known Drug Allergies Allergy Verified 04/25/20 14:59 Review of Systems Review of Systems Narrative: Negative other than mentioned in the HPI Exam Vital Signs (past 8 hours): - 09/09/20 11:30 09/09/20 15:40 09/09/20 19:18 Temperature 98.2 F 100.6 F H 98.9 F Pulse Rate 97 H 103 H 93 H Respiratory Rate 18 18 18 Blood Pressure 138/85 138/87 107/68 Pulse Oximetry 97 95 95 Oxygen Delivery Method Room Air Oxygen Flow Rate 0 Narrative Exam Narrative: well-developed well-nourished male alert in no acute distress, although some expressive aphasia consistent with prior neurologic event. External ears normal, grossly clear auditory canals. External nose normal anterior nasal cavity normal bilaterally. Oral cavity/oropharynx no significant trismus, with fluctuant 2 cm abscess palpable and visible lateral to the right mid to posterior mandible. floor of mouth grossly normal, normal soft palate and posterior pharynx. Neck: Greater than 5 cm firm indurated, slightly fluctuant mildly erythematous submental swelling that is tender, no other palpable masses. Objective Labs Result Diagrams: 09/09/20 05:00 09/09/20 05:00 Labs: Laboratory Results - last 24 hr 09/08/20 09/09/20 09/09/20 18:20 05:00 05:00 WBC 13.9 H RBC 4.15 L Hgb 12.1 L Hct 36.9 L MCV 89.0 MCH 29.2 MCHC 32.8 RDW 13.8 Plt Count 202 Sodium 136 L Potassium 4.8 Chloride 103 Carbon Dioxide 31 BUN 15 Creatinine 0.72 Estimated GFR > 60.0 BUN/Creatinine Ratio 20.8 Glucose 126 H Calcium 8.8 Procalcitonin Nasal Screen MRSA (PCR) Negative for mrsa 09/09/20 05:00 WBC RBC Hgb Hct MCV MCH MCHC RDW Plt Count Sodium Potassium Chloride Carbon Dioxide BUN Creatinine Estimated GFR BUN/Creatinine Ratio Glucose Calcium Procalcitonin 0.26 Nasal Screen MRSA (PCR) Assessment & Plan Assessment & Plan narrative: Assessment: 1. Large submental abscess, presumed odontogenic source, status post incision and drainage today, culture pending 2. Right lateral mandibular intraoral abscess, again odontogenic source presumed, status post incision and drainage, culture pending plan: Await culture results, change the submental drain dressing as needed, may also milk posterior to anterior from the wound any recurrent secretions or purulence. plan on drain removal as outpatient presumably no sooner than 7 days pending his progress. He needs dental, possible oral surgery follow-up as outpatient. The patient and the hospitalist agree with the plan and understand.
[2020-09-09] MEDS: MELATONIN 3 MG TABLET 6 MG PO (20:57)
[2020-09-09 21:28] LABS: Vancomycin Trough 6.3 ug/mL (10-20)
[2020-09-09] MEDS: VANCOMYCIN 1,250 MG/250 ML PIGGYBACK 125 MG IV (21:58)
[2020-09-10] VITALS (7 sets, daily range): BP systolic 111–139; BP diastolic 70–97; PULSE 73–82; RESP 16–18; TEMP 36.1–37; O2SAT 93–97
[2020-09-10] MEDS: DEXTROSE 5%-0.45% NS 1,000 ML 100 ML IV ×2 (01:34→11:34)
--- NOTE | 2020-09-10 03:42 | PC.NURSE ---
Surgical dressing was saturated with serous/purulent type drainage. Dressing removed and replaced at 0342 with a new T drain sponge and gauze. Secured with Krilex and paper tape around the head. No complaints of pain (0/10 on the numeric pain scale).
[2020-09-10] MEDS: MORPHINE 2 MG/ML INJ IV (05:25)
[2020-09-10 06:01] LABS: Hematocrit 36.7 % (41-53); Hemoglobin 12.2 g/dL (13.5-17.5); Mean Corpuscular HGB Conc 33.4 % (30-36); Mean Corpuscular Hemoglobin 29.7 PG (26-34); Mean Corpuscular Volume 89.1 fL (80-100); Platelet Count 210 X10^3/uL (150-400); Red Blood Cell Count 4.12 X10^6/uL (4.5-5.9); Red Cell Distribution Width 13.8 % (11.6-14.8); White Blood Cell Count 9.8 X10^3/uL (4.5-11.0)
[2020-09-10] MEDS: PIPERACILLIN/TAZO 3.375 GM in SODIUM CHLORIDE 0.9% 100 ML 25 ML IV ×2 (06:47→15:47)
[2020-09-10] MEDS: ROPINIROLE 1 MG TABLET PO ×2 (09:44→21:56)
[2020-09-10] MEDS: ENOXAPARIN 40 MG/0.4 ML SYRINGE SUBCUT (09:44)
[2020-09-10] MEDS: TROSPIUM 20 MG 20 EACH PO ×2 (10:22→21:56)
[2020-09-10] MEDS: DOCUSATE 100 MG CAPSULE PO ×2 (10:24→21:56)
[2020-09-10] MEDS: polyethylene glycoL 3350 17 GM POWD.PACK PO (10:24)
[2020-09-10] MEDS: VANCOMYCIN 1,250 MG/250 ML PIGGYBACK 125 MG IV ×2 (10:55→21:56)
--- NOTE | 2020-09-10 11:28 | SLP.IPNOTE ---
Pt has had oral surgery to drain submandibular abscess. Stopped in to see pt. Asked him if he would like to try more solid foods today. He replied with No. Given that surgery was last evening, ST will not see pt today.
--- NOTE | 2020-09-10 12:44 | CM.DPC ---
Addendum entered by Estefany Pat LPN 09/10/20 15:58: Still no call backs. Pt is now more confuses. May benefit from PT/OT and perhaps consider a snf for recovery. Addendum entered by Estefany Pat LPN 09/10/20 13:06: Looked further into chart and found a contact for Sarah Bravo: [phone]. Left a message introducing self and role and requesting a call back to discuss d/c issues and options. Original Note: DCP: continued: case received, EMR reviewed and discussed in Team Rounds. ENT Edgar Russell confirmed in his note of last night that cultures are still pending. dressing changes as needed and also milking of posterior to anterior from wound and recurrent secretions of purulence. Drain will remain in place at least 7 days. PCP: this is still a bit unclear. Met with pt in attempt to gain clarity. Historical notes show that pt was established with Dr. Alves who has since retired. Pt struggles to relay history but does agree that his son Ki or Ki's , with whom pt lives, should have more information on this. He does not think he has been to a physician since but is not certain. He says his family is looking for a doctor who will take but pt has Medicare as primary and then for Life so this should not be a barrier. IF pt is able to d/c to home setting it would seem that he would benefit from HH services but cannot do this without a PCP. Called Ki at the listed [phone] had left a brief message (as his is not set up with a name identifier). Tried to contact karthikeyan Cain as the DCP assessment note indicates this is the main contact for pt but number on face sheet is not in service. AGRONOMIST is seeing pt and has some recommendations posted above his bed. DCP team will continue to follow.
--- NOTE | 2020-09-10 14:00 | DIET.PN ---
Dietary Progress Note RD Note: 74y M pt c submandibular abcess requiring I&D and drain placement on full liquid diet. Pt declines SOCIAL RESEARCH ASSISTANT eval to progress diet. Pt tolerating 50-100% POs. Kitchen to send ONS Christopher once daily to assist with wound healing.
--- NOTE | 2020-09-10 15:27 | PC.NURSE ---
A&Ox3 but increased confusion this shift. When helping patient to use the urinal he instead moved the urinal out of the way and urinated stright into the trash can. He apologized for doing so about chcf through when he seemed to realize what he was doing. When asked is he is having any pain he states he is doing okay although slightly sore but did not want anything for pain. Has expressive aphasia and stutters trying to find his words. Full liquid diet, did not feel comfortable transitioning to solids. Gauze and wrap around chin with some drainage, cdi now. Call light within reach, bed low.
--- NOTE | 2020-09-10 18:54 | PM.PN.1 ---
Subjective Subjective Date Patient Seen: 09/10/20 Time Patient Seen: 09:00 Interval history: Today the patient feels much improved. He has no further fevers. He had his abscess drained yesterday. Exam Vital Signs (past 8 hours): - 09/10/20 11:00 09/10/20 15:00 Temperature 97.4 F L 97.5 F L Pulse Rate 78 82 Respiratory Rate 18 18 Blood Pressure 128/84 130/87 Pulse Oximetry 95 96 Oxygen Delivery Method Room Air Oxygen Flow Rate 0 Narrative Exam Narrative: GEN: no acute distress HEENT: moist mucus membranes, poor dentition, head and neck are wrapped, swelling is markedly reduced, pain is reduced NECK: Submandibular neck swollen without erythema, has induration that is improving, and only mild pain, has mild adenopathy felt PULM: clear to auscultation CV: regular rate and rhythm with no murmurs ABD: soft, non tender, non distended Objective Labs Result Diagrams: 09/10/20 05:45 09/09/20 05:00 Labs: Laboratory Results - last 24 hr 09/09/20 09/10/20 20:45 05:45 WBC 9.8 RBC 4.12 L Hgb 12.2 L Hct 36.7 L MCV 89.1 MCH 29.7 MCHC 33.4 RDW 13.8 Plt Count 210 Vancomycin Trough 6.3 L PFSH Medical History Anoxic encephalopathy Cardiac arrest Colon cancer Myocardial infarction Prostate cancer Restless leg syndrome Surgical History History of bowel resection Family History Mother Diabetes mellitus Social History household members: children Smoking Status: Former smoker Assessment & Plan Assessment & Plan narrative: 74 y/o male admitted with neck cellulitis 1. Acute neck cellulitis -likely extension of tooth abscess -CT shows platysmal swelling, and subcutaneous edema, but no evidence of deep neck space infection initially ----follow up CT showed discrete abscess below neck and next to tooth both drained on 09/09 by ENT ----cultures sent and pending -no airway compromise -no evidnece of lauryn's angina -WBC initially 15.7, now normalized -History of poor dentition, was scheduled Wednesday for tooth extraction -Start IV fluids as patient not eating well secondary to pain -Full liquid diet advance as tolerated -IV Zosyn, vanc for now -follow clinical exam for resolution of swelling, progression,etc 2. History of Prostate Cancer -some chronic urinary frequency -will continue Trospium 3. Restless Legs Syndrome -Continue ropinirole 4. History of anoxic encephalopathy from a cardiac arrest Patient's son, Ki is his DPOA, he is DNR/DNR and will note this in his record according.
[2020-09-10] MEDS: MELATONIN 3 MG TABLET 6 MG PO (21:56)
[2020-09-10] MEDS: SENNOSIDES 8.6 MG TABLET 17.2 MG PO (21:56)
[2020-09-11] MEDS: DEXTROSE 5%-0.45% NS 1,000 ML 100 ML IV (00:12)
[2020-09-11] MEDS: PIPERACILLIN/TAZO 3.375 GM in SODIUM CHLORIDE 0.9% 100 ML 25 ML IV ×2 (00:12→07:04)
[2020-09-11 04:26] VITALS: BP 135/95; PULSE 75; RESP 18; TEMP 36.9; O2SAT 92
[2020-09-11 08:00] VITALS: BP 130/81; PULSE 77; RESP 17; TEMP 36.6; O2SAT 93
[2020-09-11 08:30] VITALS: O2SAT 93
[2020-09-11] MEDS: TROSPIUM 20 MG 20 EACH PO (08:45)
[2020-09-11] MEDS: polyethylene glycoL 3350 17 GM POWD.PACK PO (08:45)
[2020-09-11] MEDS: ROPINIROLE 1 MG TABLET PO (08:45)
[2020-09-11] MEDS: DOCUSATE 100 MG CAPSULE PO (08:45)
[2020-09-11] MEDS: IBUPROFEN 600 MG TABLET PO (08:45)
[2020-09-11] MEDS: ENOXAPARIN 40 MG/0.4 ML SYRINGE SUBCUT (08:45)
--- NOTE | 2020-09-11 10:25 | CM.DPC ---
DCP Cont: Discussed patient during team rounds. Was informed that patient will be stable for discharge today. He will be going home on oral antibiotics. Was able to contact patient's son. Ki, and his , Aurelia. Aurelia confirmed that patient does have a primary care provider, Dr. Nesbitt at [facility]. She stated that she can pick patient up at 1300 today. Updated nurse, Deepika. He currently does not yet have discharge orders in. Plan is also for patient to follow up with Dr. Russell, ENT. P: Patient is to discharge home today, in the care of son and daughter in law. Thea Anderson RN/Electrical Experimental Mechanic
[2020-09-11] MEDS: VANCOMYCIN 1,500 MG/300 ML PIGGYBACK 200 MG IV (11:05)
--- NOTE | 2020-09-11 11:18 | SLP.IPNOTE ---
Attempted to see patient for trial diet advance. Pt refused indicating that chewing in uncomfortable and did not want to try today. He noted that his lumpy oatmeal was difficult and uncomfortable this a.m. Pt is scheduled for discharge home this afternoon.
[2020-09-11 12:00] VITALS: BP 136/84; PULSE 76; RESP 16; TEMP 36.5; O2SAT 94
--- NOTE | 2020-09-11 12:12 | PM.DS.1 ---
History of Present Illness History of Present Illness Chief complaint: INFECTION IN JAW-HARD TO SWALLOW Narrative: Per Dr. Paz: Patient is a delightful 74 y/o male with a history of Myocardial Infarction followed by Cardiac Arrest with resulting Anoxic Brain injury, history of prostate cancer, restless legs syndrome who was well until 5 days ago. Patient developed dental pain and was seen by a Dentist on . He was told he had a dental abcess, needed a tooth extracted and likely had a bone infection. The patient was scheduled for a tooth extraction on Wednesday but the appointment had to be rescheduled for Wednesday as the Dentist was not available. On Wednesday he developed submandibular swelling. His Daughter in Law spoke to the dental office regarding this and they prescribed augmentin for the swelling. This morning he complained of inability to swallow and was brought to the Emergency Department for evaluation. In the ED patient was found to have submandibular swelling, an elevated white count of [address] of the Neck revealed cellulitis of the neck with no focal fluid collection or indications of abcess. Given how quickly the swelling increased and patients inability to swallow he was admitted to the hospital for definitive treatment. Discharge Providers Provider Date of admission: 09/07/20 11:40 Discharge Date: 09/11/20 Consults: 09/08/20 10:36 Consult to Speech Therapy Evaluate & Treat Comment: poor dentition, neck infection, difficulty swallow Physician Instructions: Evaluate and treat Discharge provider: Osmani Lugo MD Summary Hospital Course Discharge Diagnosis: 1. Acute neck cellulitis with abscesses 2. History of prostate cancer 3. Restless leg syndrome 4. History of anoxic encephalopathy from previous cardiac arrest Hospital Course: Mr. Bravo presented to the hospital with neck cellulitis. He was started on broad spectrum antibiotics with vancomycin and zosyn. Despite this he developed fluctuance beneath his chin, and in the inside of his mouth to the right lower mandible next to the cheek. Because of this ENT was consulted who performed I and D on both abscesses. Cultures on day of discharge showed gram stain with 3+ GPCs but no growth in the culture. Because of this he will be left on broad antibiotics with Augmentin with plan for an additional week of antibiotics. He will have the drain kept in place beneath his chin, until follow up with ENT. He is planned for outpatient follow up in one week. He is encourage to make an appointment with dentist as soon as able to remove infected teeth. Exam Vital Signs (past 8 hours): Oxygen Delivery Method Room Air Oxygen Flow Rate 0 Narrative Exam Narrative: GEN: no acute distress HEENT: moist mucus membranes, poor dentition, head and neck are wrapped, swelling is markedly reduced, pain is reduced NECK: Submandibular neck swelling nearly resolved without erythema, mild pain, has mild adenopathy felt, neck dressing clean dry and intact PULM: clear to auscultation CV: regular rate and rhythm with no murmurs ABD: soft, non tender, non distended Objective Labs Result Diagrams: 09/10/20 05:45 09/09/20 05:00 [facility] Medical History Anoxic encephalopathy Cardiac arrest Colon cancer Myocardial infarction Prostate cancer Restless leg syndrome Surgical History History of bowel resection Family History Mother Diabetes mellitus Social History household members: children Smoking Status: Former smoker Discharge Plan Discharge Plan Patient Disposition: Home Provider Discharge Comment: Mr. Bravo was admitted with jaw pain. He had a neck infection and abscess. This was caused by an infected tooth. He did have the collection of infection drained. He had a drain placed by ear, nose and throat specialist Dr. Edgar Russell. He should follow up with Dr. Russell to consider removing the drain in one week. He should have regular dressing changes as needed. He should follow up with his dentist as soon as possible for consideration of tooth removal. Discharge orders & Medications Prescriptions: New amoxicillin-pot clavulanate [Augmentin] 875-125 mg tablet 1 tab PO BID Qty: 14 RF: 0 Continued ropinirole 2 mg tablet 1 mg PO BID RF: 0 trospium 20 mg tablet 20 mg PO BID RF: 0 Discontinued amoxicillin-pot clavulanate 500-125 mg tablet 1 tab PO TID RF: 0 Medication counseling provided by Pharmacist: Yes Follow up/Referrals: Edgar Russell MD [Physician] - 09/18/20 11:15 am (APPT:09/18 @ 11:15 ARRIVAL FOR A [address] RUSSELL REGARDING FOLLOW UP OF: jaw, neck abscess s/p drainage with drain in place) Diet/Activity/Treatments Diet: Regular
--- NOTE | 2020-09-11 13:30 | PC.NURSE ---
Pt is dressed and ready for discharge home with Son. IV's have been removed. Home Med - returned to Pt from pharmacy. Pharmacy met with Pt to discuss d/c med. Went over d/c instructions with Pt and Son, discussed d/c meds, time of last dose, reviewed stroke education, dsg changes, and follow up. Discussed diet as tolerated. Pt out via w/c by EXPORT MANAGER to POV with Son and all belongings.
== END 2020-09-11 13:32 | disposition home or self-care (01) | DRG 137 ==
LOC: ED 09:17 → AC 11:41
PROVIDERS: Internal Medicine; Admitting Provider Internal Medicine; Emergency Provider Emergency Medicine; Referring Provider Emergency Medicine; Visit Provider Internal Medicine
DX: K04.7 Periapical abscess without sinus (principal); L03.221 Cellulitis of neck; G93.1 Anoxic brain damage, not elsewhere classified; M27.2 Inflammatory conditions of jaws; G25.81 Restless legs syndrome; Z87.891 Personal history of nicotine dependence; Z66 Do not resuscitate; Z20.822 Contact with and (suspected) exposure to COVID-19
CPT/HCPCS: 36415; 36592; 70491; 80048; 80053; 80202; 83605; 84145; 85025; 85027; 87040; 87070; 87075; 87076; 87077; 87205; 87635; 87797; 92610; 99284; C9803; J0295; J1100; J1650; J1885; J2270; J2543; Q9967

== ENCOUNTER 2020-09-14 14:44 | Emergency (ER) | payer MEDICARE, OTHER, SELFPAY ==
[2020-09-07 12:50] VITALS: BMI 22.3
[2020-09-14 14:48] VITALS: BP 138/84; PULSE 81; RESP 16; TEMP 36.3; O2SAT 97; BMI 23.0
--- NOTE | 2020-09-14 15:04 | ED.DENTAL ---
HPI - Dental/Oral General Chief complaint: Dental/Oral Stated complaint: pulled out his tube from his face Time Seen by Provider: 09/14/20 15:03 History of Present Illness HPI Narrative: 74-year-old male nonsmoker with history of hypertension and a cognitive delay presents with his caregiver and a chief complaint of accidental removal of postsurgical drain. I had seen and evaluated the patient over a week ago for a large submental cellulitis versus abscess. The patient had been admitted on IV antibiotics and had subsequent incision and drainage by Otolaryngology. He had been discharged with a [place] drain in place. He is significantly improved and has not had much in the way of drainage over the past few days. When itching his face he accidentally removed the drain and they are here for evaluation. Related Data Home Medications Medication Instructions Recorded Confirmed aspirin 81 mg tablet,delayed 81 mg PO DAILY 07/25/18 07/25/18 release (Aspir-) cholecalciferol (vitamin D3) 50 2,000 unit PO DAILY 07/25/18 07/25/18 mcg (2,000 unit) capsule (Vitamin D3) melatonin 5 mg tablet 6 mg PO BEDTIME PRN 07/25/18 07/25/18 metoprolol succinate 50 mg 50 mg PO DAILY 07/25/18 07/25/18 tablet,extended release 24 hr (Toprol XL) niacin 500 mg tablet,extended 500 mg PO BID 07/25/18 07/25/18 release 24 hr (Niaspan) simvastatin 20 mg tablet 20 mg PO QPM 07/25/18 07/25/18 terbinafine HCl 250 mg tablet 250 mg PO DAILY 07/25/18 07/25/18 ropinirole 2 mg tablet 1 mg PO BID 09/07/20 09/07/20 trospium 20 mg tablet 20 mg PO BID 09/07/20 09/07/20 Previous Rx's Medication Instructions Recorded amoxicillin 875 mg-potassium 1 tab PO BID #14 tab 09/11/20 clavulanate 125 mg tablet (Augmentin) Allergies Allergy/AdvReac Type Severity Reaction Status Date / Time No Known Drug Allergies Allergy Verified 09/16/20 08:01 Review of Systems Review of Systems Narrative: GENERAL: Denies chills, fatigue, malaise, fever, sweats. HEENT: Denies sinus pain, ear pain, sore throat, difficulty swallowing, dizziness. RESPIRATORY: Denies dyspnea, cough, wheezing, hemoptysis, sputum. CARDIOVASCULAR: Denies chest pain, palpitations, orthopnea, edema, GASTROINTESTINAL: Denies nausea, vomiting, abdominal pain, diarrhea, constipation, melena. : Denies dysuria, frequency, incontinence, hematuria, urinary retention. MUSCULOSKELETAL: denies weakness, joint pain, or bony pain SKIN: Denies rash, skin lesions, or other NEUROLOGIC: Denies weakness, headache, numbness, change in speech, confusion, seizures, incoordination. PSYCHIATRIC: No concerning psychosocial issues. 12 point review of systems is negative except for those stated above Patient History Medical History Anoxic encephalopathy Cardiac arrest Colon cancer Myocardial infarction Prostate cancer Restless leg syndrome Surgical History History of bowel resection Family History Mother Diabetes mellitus Social History household members: children Smoking Status: Former smoker Smoking Status: Former smoker alcohol intake frequency: holidays/special occasions only Substance Use Type: does not use Exam Narrative Exam Narrative: GEN: AOx3 and in mild distress EYES: Pupils are equal, round, and reactive to light and accommodation. Extraoccular muscles are intact bilaterally. There is no subconjunctival hemorrhage or exudate. ENT: Minimal submental swelling without erythema, no fluctuance or ongoing drainage. Minimal induration. No intraoral findings. Handling secretions normally and no evidence to suggest airway problem CHEST: Lungs are clear to auscultation bilaterally and free of wheezes, rales, or rhonchi. Heart rate is regular rhythm, there are no murmurs, clicks, rubs, or gallops. There is no chest wall tenderness. ABD: Abdomen is soft and nontender. There is no guarding or rebound. Bowel sounds are normal in all 4 quadrants. There is no mass or organomegaly. EXT: Full painless ROM of all extremities with no loss of sensation or strength. SKIN: Warm, pink, and dry. No erythema or rash Initial Vital Signs Initial Vital Signs: Vital Signs Temperature 97.4 F L 09/14/20 14:48 Pulse Rate 81 08/07/21 14:48 Respiratory Rate 16 09/14/20 14:48 Blood Pressure 138/84 09/14/20 14:48 Pulse Oximetry 97 09/14/20 14:48 Course Consultations Consultation #1: discussed with on-call ENT. After discussion of history and physical we sure the opinion that there is no need to attempt to replace the drain and he should follow up as planned Vital Signs Vital signs: Vital Signs - 8 hr 09/14/20 14:48 Temperature 97.4 F L Pulse Rate 81 Respiratory Rate 16 Blood Pressure 138/84 Pulse Oximetry 97 MDM - Dental/Oral MDM Narrative Medical decision making narrative: Accidental removal of [place] drain in patient with recent incision and drainage of facial abscess. The patient shows no systemic findings and has a very reassuring history and physical exam. There is no indication to suggest a repeat incision and drainage or replacement of drain is needed. Patient given return precautions and questions answered to his apparent satisfaction Discharge Plan Departure Patient Disposition: Home Clinical Impression: Abscess or cellulitis of chin Instructions: DI for Skin Abscess Activity Restrictions/Additional Instructions: *You have been diagnosed with [evaluation of known facial abscess.] *What to do: *Please continue to take your regular medications as directed. [ ] New medication prescriptions sent to your pharmacy: [ ] [ ] New medication written as a paper prescription [ x] No new medications given *Please follow up with your ENT in 2-3 days, call for an appointment. Let them know you were seen in the Emergency Department and that we ask that you be seen in follow up. We will electronically transmit a record of today's note if your PCP is in our system *If you do not have a primary care provider please contact the [facility] Resource line at [phone]. They will ask some questions about your medical history and help get you set up with a doctor in the community. *Return to Emergency Department if you should have any new, worsening or concerning symptoms, such as [fever greater than 101 F, shaking chills, worsening pain, persistent vomiting or other bothersome symptoms] Prescriptions: No Action ropinirole 2 mg tablet 1 mg PO BID RF: 0 trospium 20 mg tablet 20 mg PO BID RF: 0 amoxicillin-pot clavulanate [Augmentin] 875-125 mg tablet 1 tab PO BID Qty: 14 RF: 0 metoprolol succinate [Toprol XL] 50 mg Tablet Extended Release 24 Hr 50 mg PO DAILY RF: 0 niacin [Niaspan Extended-Release] 500 mg Tablet Extended Release 24 Hr 500 mg PO BID RF: 0 aspirin [Aspir-81] 81 mg Tablet,Delayed Release (Dr/Ec) 81 mg PO DAILY RF: 0 terbinafine HCl 250 mg Tablet 250 mg PO DAILY RF: 0 simvastatin 20 mg Tablet 20 mg PO QPM RF: 0 melatonin 5 mg Tablet 6 mg PO BEDTIME PRN (Reason: Sleep) RF: 0 cholecalciferol (vitamin D3) [Vitamin D3] 2,000 unit Capsule 2,000 unit PO DAILY RF: 0 Referrals: Edgar Russell MD [Physician] -
--- NOTE | 2020-09-14 15:28 | PC.NURSE ---
Addendum entered by Sandee Ramirez R.N. 09/14/20 15:35: Note written by Angela Cyr RN. Original Note: Patient family member reports that patient was supposed to have drainage tube removed on Wednesday for Wednesday appt with Dr Russell. Today accidentally removed tube, breaking single stitch holding it in. Family member reports that drainage had significantly slowed down and was just serosang without purulence. Patient denies pain. Incision with slight erythema, no edema, with serosang and single stand of purulent material.
== END 2020-09-14 15:35 | disposition home or self-care (01) ==
PROVIDERS: Emergency Provider Emergency Medicine
DX: L02.01 Cutaneous abscess of face (principal)
CPT/HCPCS: 99281

== ENCOUNTER 2022-03-24 10:50 | Emergency (ER) | payer MEDICARE, OTHER, SELFPAY ==
[2020-09-07 12:50] VITALS: BMI 22.3
[2022-03-24 11:22] VITALS: BP 113/81; PULSE 76; RESP 16; TEMP 36.5; O2SAT 98; BMI 23.7
--- NOTE | 2022-03-24 11:30 | DI.RAD.S_ITS ---
PROCEDURE: XR FOOT LT MIN 3V INDICATIONS: fall/injury TECHNIQUE: 3 views of the foot were acquired. COMPARISON: None. FINDINGS: Bones: Acute minimally displaced fracture of the base of the 5th metatarsal, possible old injury. Scattered sub polyarticular degenerative changes present. Mild bunion deformity. Soft tissues: No tibiotalar joint effusion. . IMPRESSION: Acute minimally displaced fracture of the base of the 5th metatarsal. Dictated by: Td Sheth M.D. on 03/24/2022 at 12:24 Approved by: Td Sheth M.D. on 03/24/2022 at 12:26
--- NOTE | 2022-03-24 12:52 | ED_ITS ---
HPI - Extremity Injury (Lower) <Jimbo Kaiser PA-C - Last Filed: 03/24/22 13:03> General Chief Complaint: Extremity Injury, Lower Stated Complaint: tripped and fell LT foot hurt T-1 Time Seen by Provider: 03/24/22 12:22 Source: patient Mode of arrival: Ambulatory History of Present Illness HPI Narrative: 76-year-old male presents to the ED status post a left foot injury sustained yesterday. Patient states that he had a mechanical fall, injured his left foot, has been painful since. Patient is able to bear weight and walk despite the injury. Patient denies any numbness, tingling, weakness. Patient denies fe eling lightheaded or unwell prior to falling. Related Data Home Medications Medication Instructions Recorded Confirmed aspirin 81 mg tablet,delayed 81 mg PO DAILY 07/25/18 07/25/18 release (Aspir-) cholecalciferol (vitamin D3) 50 2,000 unit PO DAILY 07/25/18 07/25/18 mcg (2,000 unit) capsule (Vitamin D3) melatonin 5 mg tablet 6 mg PO BEDTIME PRN Sleep 07/25/18 07/25/18 metoprolol succinate 50 mg 50 mg PO DAILY 07/25/18 07/25/18 tablet,extended release 24 hr (Toprol XL) niacin 500 mg tablet,extended 500 mg PO BID 07/25/18 07/25/18 release 24 hr (Niaspan) simvastatin 20 mg tablet 20 mg PO QPM 07/25/18 07/25/18 terbinafine HCl 250 mg tablet 250 mg PO DAILY 07/25/18 07/25/18 ropinirole 2 mg tablet 1 mg PO BID 09/07/20 09/07/20 trospium 20 mg tablet 20 mg PO BID 09/07/20 09/07/20 Previous Rx's Medication Instructions Recorded amoxicillin 875 mg-potassium 1 tab PO BID #14 tabs 09/11/20 clavulanate 125 mg tablet (Augmentin) Allergies Allergy/AdvReac Type Severity Reaction Status Date / Time No Known Drug Allergies Allergy Verified 09/16/20 08:01 Review of Systems <Jimbo Kaiser PA-C - Last Filed: 03/24/22 13:03> Review of Systems ROS Unobtainable: All systems reviewed & are unremarkable except as noted in HPI and below Constitutional Constitutional: Denies chills, Denies fatigue, Denies fever(s), Denies frequent falls, Denies lethargy and Denies weakness Eyes Eyes: Denies change in vision, Denies eye discharge, Denies irritation and Denies loss of vision ENT Ears, Nose, Mouth, and Throat: Denies change in voice, Denies dizziness, Denies neck pain, Denies sore throat and Denies throat swelling Cardiovascular Cardiovascular: Denies chest pain, Denies irregular heart rhythm, Denies lightheadedness, Denies palpitations, Denies dyspnea, Denies dyspnea on exertion and Denies orthopnea Respiratory Respiratory: Denies cough, Denies dyspnea, Denies dyspnea on exertion and Denies wheezing Gastrointestinal Gastrointestinal: Denies abdominal pain, Denies change in bowel habits, Denies diarrhea, Denies nausea and Denies vomiting Genitourinary Genitourinary: Denies hematuria, Denies flank pain, Denies urinary incontinence and Denies urinary urgency Musculoskeletal Musculoskeletal: Denies back pain, Denies muscle weakness, Denies neck pain, Denies numbness and Denies tingling Comments: L lateral foot pain Integumentary/Breasts Skin/Breast: Denies pruritus, Denies erythema, Denies rash and Denies wounds Neurologic Neurologic: Denies behavioral changes, Denies confusion, Denies dizziness, Denies frequent falls, Denies loss of vision, Denies numbness, Denies tingling and Denies weakness Psychiatric Psychiatric: Denies anxiety, Denies behavioral changes, Denies confusion, Denies depression, Denies homicidal ideation and Denies suicidal ideation Endocrine Endocrine: Denies fatigue, Denies flushing and Denies palpitations Hematologic/Lymphatic Hematologic/Lymphatic: Denies easy bruising Allergic/Immunologic Allergic/Immunologic: Denies urticaria, Denies throat swelling and Denies wheezing Patient History <Jimbo Kaiser PA-C - Last Filed: 03/24/22 13:03> Medical History Anoxic encephalopathy Cardiac arrest Colon cancer Myocardial infarction Prostate cancer Restless leg syndrome Surgical History History of bowel resection Family History Mother Diabetes mellitus Social History household members: children Smoking Status: Former smoker Smoking Status: Former smoker alcohol intake frequency: holidays/special occasions only Substance Use Type: does not use Exam <Jimbo Kaiser PA-C - Last Filed: 03/24/22 13:03> Narrative Exam Narrative: Const General:?cooperative, healthy appearing and comfortable HENMT Head:?normal to inspection Ears:?hearing grossly normal bilaterally Nose:?external nose normal Face and sinus:?normal facial exam and sinuses nontender Mouth:?oral mucosae normal Throat:?posterior oropharynx normal Eyes General:?appearance normal, both eyes and all related structures Neck Neck:?normal visual inspection and no lymphadenopathy noted Resp Effort & Inspection:?normal respiratory effort Auscultation:?clear to auscultation bilaterally Cardio Rate:?regular rate Rhythm:?regular rhythm Musculoskeletal Tenderness to palpation of base of left 5th metatarsal. There is some swelling in the area. Skin is intact. Strength and sensation is intact. There is full range of motion. Patient is neurovascularly intact. Neuro General:?patient alert, patient awake and patient oriented x3 Initial Vital Signs Initial Vital Signs: Vital Signs Temperature 97.7 F 03/24/22 11:22 Pulse Rate 76 03/24/22 11:22 Respiratory Rate 16 03/24/22 11:22 Blood Pressure 113/81 03/24/22 11:22 Pulse Oximetry 98 03/24/22 11:22 Oxygen Delivery Method 03/24/22 11:22 <Peng Johns DO - Last Filed: 03/24/22 15:15> Initial Vital Signs Initial Vital Signs: Vital Signs Temperature 97.7 F 03/24/22 11:22 Pulse Rate 76 03/24/22 11:22 Respiratory Rate 16 03/24/22 11:22 Blood Pressure 113/81 03/24/22 11:22 Pulse Oximetry 98 03/24/22 11:22 Oxygen Delivery Method 03/24/22 11:22 Course <Jimbo Kaiser PA-C - Last Filed: 03/24/22 13:03> Orders Ordered: ED Orders 03/24/22 11:30 XR foot LT min 3V Stat Discontinued Medications Ibuprofen (Ibuprofen 400 Mg Tablet) 800 mg PO NOW ONE Stop: 03/24/22 12:46 Last Admin: 03/24/22 12:54 Dose: 800 mg Documented By: KACIE Vital Signs Vital signs: Vital Signs - 8 hr 03/24/22 11:22 03/24/22 13:35 03/24/22 13:36 Temperature 97.7 F Pulse Rate 76 72 Pulse Rate [Left Dorsalis Pedis] 72 Respiratory Rate 16 14 Blood Pressure 113/81 140/78 Pulse Oximetry 98 99 Oxygen Delivery Method Room Air Room Air <Peng Johns DO - Last Filed: 03/24/22 15:15> Orders Ordered: ED Orders 03/24/22 11:30 XR foot LT min 3V Stat Discontinued Medications Ibuprofen (Ibuprofen 400 Mg Tablet) 800 mg PO NOW ONE Stop: 03/24/22 12:46 Last Admin: 03/24/22 12:54 Dose: 800 mg Documented By: KACIE Vital Signs Vital signs: Vital Signs - 8 hr 03/24/22 11:22 03/24/22 13:35 03/24/22 13:36 Temperature 97.7 F Pulse Rate 76 72 Pulse Rate [Left Dorsalis Pedis] 72 Respiratory Rate 16 14 Blood Pressure 113/81 140/78 Pulse Oximetry 98 99 Oxygen Delivery Method Room Air Room Air MDM - Extremity Injury (Lower) <Jimbo Kaiser PA-C - Last Filed: 03/24/22 13:03> MDM Narrative Medical decision making narrative: 76-year-old male presents to the ED status post a left foot injury sustained yesterday. Concern for musculoskeletal sprain/strain versus fracture/dislocation. X-ray of the foot was obtained, which shows a acute minimally displaced fracture of the base of the 5th metatarsal. This finding clinically correlates with tenderness to palpation on exam at the base of the 5th metatarsal. Patient is neurovascularly intact. Positionally, fracture appears to be a Zavala fracture. Will apply a posterior ankle splint, advise strict nonweightbearing, follow-up with ortho in 3-5 days. Supportive care discussed with elevation, ibuprofen/Tylenol. Patient was given some ibuprofen in the ED. ED return precautions were discussed with patient and patient's [id number]. They verbalized understanding. Medical records reviewed: Yes Discharge Plan Departure Patient Disposition: Home Clinical Impression: Fracture of 5th metatarsal Instructions: DI for Foot Fracture Activity Restrictions/Additional Instructions: You were evaluated in the ED today for a foot injury sustained yesterday. Your x-ray does show a small fracture of the 5th metatarsal. A splint has been ap plied for immobilization. It is important that you keep your splint on, keep it clean and dry. It is also important to be nonweightbearing on that left foot until your fracture heals. You may take ibuprofen/Tylenol for pain. Elevation will be beneficial to reduce swelling and pain. Please also follow-up with [facility] at [phone] in 3-5 days for further evaluation. Please return to the ED if you experience any numbness, tingling, weakness. Prescriptions: No Action ropinirole 2 mg tablet 1 mg PO BID trospium 20 mg tablet 20 mg PO BID Label Comments: take 1 tablet by mouth twice a day amoxicillin-pot clavulanate [Augmentin] 875-125 mg tablet 1 tab PO BID Qty: 14 0RF metoprolol succinate [Toprol XL] 50 mg Tablet Extended Release 24 Hr 50 mg PO DAILY niacin [Niaspan Extended-Release] 500 mg Tablet Extended Release 24 Hr 500 mg PO BID aspirin [Aspir-81] 81 mg Tablet,Delayed Release (Dr/Ec) 81 mg PO DAILY terbinafine HCl 250 mg Tablet 250 mg PO DAILY simvastatin 20 mg Tablet 20 mg PO QPM melatonin 5 mg Tablet 6 mg PO BEDTIME PRN (Reason: Sleep) cholecalciferol (vitamin D3) [Vitamin D3] 2,000 unit Capsule 2,000 unit PO DAILY Referrals: Miscellaneous,Doctor, MD [Primary Care Provider] - Stand Alone Forms: Patient Portal/API <Peng Johns DO - Last Filed: 03/24/22 15:15> [facility] Carm[facility] Attestation: I was immediately available in the department for consultation. This documentation has been reviewed and I agree with assessment and plan. Supervised by Peng Johns DO
[2022-03-24] MEDS: IBUPROFEN 400 MG TABLET 800 MG PO (12:54)
--- NOTE | 2022-03-24 12:54 | PC.NURSE ---
ibuprofen given pre splint for anticipated discomfort
[2022-03-24 13:35] VITALS: BP 140/78; PULSE 72; RESP 14; O2SAT 99
[2022-03-24 13:36] VITALS: PULSE 72
== END 2022-03-24 13:40 | disposition home or self-care (01) ==
PROVIDERS: Emergency Provider Student in an Organized Health Care Education/Training Program
DX: S92.352A Displaced fracture of fifth metatarsal bone, left foot, initial encounter for closed fracture (principal); W18.30XA Fall on same level, unspecified, initial encounter
CPT/HCPCS: 29515; 73630; 99283; 99284

== ENCOUNTER → 2022-04-13 09:21 | Outpatient (CLI) | payer MEDICARE, OTHER, SELFPAY ==
[2020-09-07 12:50] VITALS: BMI 22.3
--- NOTE | 2022-04-13 | DI.RAD.S_ITS ---
PROCEDURE: XR FOOT LT MIN 3V INDICATIONS: Displaced fracture of fifth metatarsal bone, LEFT foot, ini TECHNIQUE: 3 views of the foot were acquired. COMPARISON: [facility], , XR FOOT LT MIN 3V, 03/24/2022, 11:31. FINDINGS: Bones: Early progress in healing of a base of 5th metatarsal fracture. There is slight interval increase in fracture lucency consistent with early resorptive changes that occur within the healing process. No suspicious bony lesions. Soft tissues: No tibiotalar joint effusion. Achilles tendon appears normal. IMPRESSION: Very early progress in healing a base of 5th metatarsal fracture. Dictated by: Mohinder Paredes M.D. on 04/13/2022 at 11:55 Approved by: Mohinder Paredes M.D. on 04/13/2022 at 11:58
== END ==
PROVIDERS: Referring Provider Podiatrist; Visit Provider Podiatrist
DX: S92.352A Displaced fracture of fifth metatarsal bone, left foot, initial encounter for closed fracture (principal); X58.XXXA Exposure to other specified factors, initial encounter
CPT/HCPCS: 73630

== ENCOUNTER → 2022-04-28 09:01 | Outpatient (CLI) | payer MEDICARE, OTHER, SELFPAY ==
[2020-09-07 12:50] VITALS: BMI 22.3
--- NOTE | 2022-04-28 | DI.RAD.S_ITS ---
PROCEDURE: XR FOOT LT MIN 3V INDICATIONS: POST BREAK OF LT FOOT TECHNIQUE: 3 views of the foot were acquired. COMPARISON: [facility], CR, XR FOOT LT MIN 3V, 04/13/2022, 9:40. [facility], CR, XR FOOT LT MIN 3V, 03/24/2022, 11:31. FINDINGS: Similar appearance and alignment of the previously demonstrated proximal 5th metatarsal fracture. No definite new/interval abnormality identified. IMPRESSION: Similar appearance and alignment of the 5th metatarsal fracture. Dictated by: Td Sheth M.D. on 04/28/2022 at 14:04 Approved by: Td Sheth M.D. on 04/28/2022 at 14:08
== END ==
PROVIDERS: Referring Provider Podiatrist; Visit Provider Podiatrist
DX: S92.352A Displaced fracture of fifth metatarsal bone, left foot, initial encounter for closed fracture (principal); X58.XXXA Exposure to other specified factors, initial encounter
CPT/HCPCS: 73630

== ENCOUNTER 2023-05-11 09:48 | Emergency (ER) | payer MEDICARE, OTHER, SELFPAY ==
[2020-09-07 12:50] VITALS: BMI 22.3
[2023-05-11] VITALS (12 sets, daily range): BP systolic 101–124; BP diastolic 64–80; PULSE 71–88; RESP 12–21; TEMP 36.9; O2SAT 92–99; BMI 22.4
--- NOTE | 2023-05-11 10:05 | ED_ITS ---
HPI - Neuro Symptoms/Deficit General Chief Complaint: Neuro Symptoms/Deficit Stated Complaint: confused/low B/P /blood pooling in hands and feet Time Seen by Provider: 05/11/23 09:52 Source: patient and family Mode of arrival: Ambulatory History of Present Illness HPI Narrative: Patient is a 69-year-old male history of cardiac arrest with hypoxic brain injury presenting today with confusion. He lives with family son and [id number]. He is presenting today with increased confusion per [id number]. She reports that he has insomnia he does not sleep at nighttime they saw a doctor about this and he was started on Ambien this week. This morning she noticed that he was confused than normal and that his blood pressure was low. He has not had any fever or infectious like symptoms. He currently denies any pain he accepts for the chronic pain that he has in his foot. He is able to follow commands and answer some questions. He takes pregabalin and Flexeril. Jukdrzll-[id number] reports that he has pretty severe restless leg was thought that the restless leg might be causing him some insomnia but she reports that he paces significantly at night On Anticoagulants: No Related Data Home Medications Medication Instructions Recorded Confirmed cholecalciferol (vitamin D3) 50 2,000 unit PO DAILY 07/25/18 05/11/23 mcg (2,000 unit) capsule (Vitamin D3) melatonin 5 mg tablet 6 mg PO BEDTIME PRN Sleep 07/25/18 05/11/23 niacin 500 mg tablet,extended 500 mg PO BID 07/25/18 05/11/23 release 24 hr (Niaspan) trospium 20 mg tablet 20 mg PO BID 09/07/20 05/11/23 cyclobenzaprine 10 mg tablet 10 mg PO ONCE PM 05/11/23 05/11/23 pregabalin 150 mg capsule 150 mg PO BID 05/11/23 05/11/23 pregabalin 50 mg capsule 50 mg PO ONCE PM 05/11/23 05/11/23 zolpidem 5 mg tablet 5 mg PO ONCE PM PRN insomnia 05/11/23 05/11/23 Allergies Allergy/AdvReac Type Severity Reaction Status Date / Time No Known Drug Allergies Allergy Verified 05/11/23 10:05 Review of Systems Hematologic/Lymphatic On Anticoagulants: No Patient History Medical History Anoxic encephalopathy Cardiac arrest Colon cancer Myocardial infarction Prostate cancer Restless leg syndrome Surgical History History of bowel resection Family History Mother Diabetes mellitus Social History household members: children Smoking Status: Former smoker Smoking Status: Former smoker alcohol intake frequency: holidays/special occasions only Substance Use Type: does not use Exam Initial Vital Signs Initial Vital Signs: Vital Signs Temperature 98.4 F 05/11/23 09:49 Pulse Rate 88 05/11/23 09:49 Respiratory Rate 14 05/11/23 09:49 Blood Pressure 120/75 05/11/23 09:49 Pulse Oximetry 99 05/11/23 09:49 Oxygen Delivery Method Room Air 05/11/23 09:49 GENERAL: Alert 77-year-old male appears older than stated age HEENT: Head atraumatic,EOMI, pupils reactive, face symmetric, moist mucous membranes CARDIOVASCULAR: Regular rate and rhythm without murmurs, rubs or gallops. RESPIRATORY: Breath sounds equal bilaterally, no wheezes rales or rhonchi. ABDOMEN: Soft, nontender. Normoactive bowel sounds all 4 quadrants. No guarding or rebound. EXTREMITIES: Normal range of motion, no clubbing or edema. Neurovascularly intact NEUROLOGICAL: Alert and oriented x2.Normal gait and speech. Cranial nerves II through XII grossly intact. SKIN: Warm, dry, no laceration, no petechiae, no rashes or lesions. Course Orders Ordered: ED Orders 05/11/23 10:02 CBC Auto Diff [Complete Blood Count AUTO DIFF] Stat CMP [Comprehensive Metabolic Panel] Stat Troponin & CK Cardiac Panel Stat 05/11/23 10:03 Chest [XR chest 1V] Stat EKG-12 Lead Stat 05/11/23 11:30 Urine Microscopic Stat Vital Signs Vital signs: Vital Signs - 8 hr 05/11/23 09:49 05/11/23 09:54 05/11/23 09:54 Temperature 98.4 F Pulse Rate 88 85 Respiratory Rate 14 Blood Pressure 120/75 120/75 Pulse Oximetry 99 98 Oxygen Delivery Method Room Air 05/11/23 10:00 05/11/23 10:00 05/11/23 10:15 Temperature Pulse Rate 83 79 Respiratory Rate 17 13 Blood Pressure 110/75 Pulse Oximetry 97 97 Oxygen Delivery Method 05/11/23 10:15 05/11/23 10:30 05/11/23 10:30 Temperature Pulse Rate 76 Respiratory Rate 13 Blood Pressure 101/67 112/69 Pulse Oximetry 97 Oxygen Delivery Method 05/11/23 10:45 05/11/23 10:45 05/11/23 11:00 Temperature Pulse Rate 76 77 Respiratory Rate 12 17 Blood Pressure 116/64 Pulse Oximetry 96 98 Oxygen Delivery Method 05/11/23 11:15 05/11/23 11:15 05/11/23 11:30 Temperature Pulse Rate 77 84 Respiratory Rate 16 17 Blood Pressure 124/76 Pulse Oximetry 97 92 Oxygen Delivery Method 05/11/23 11:32 05/11/23 11:32 05/11/23 11:45 Temperature Pulse Rate 71 Respiratory Rate 13 Blood Pressure 121/80 121/70 Pulse Oximetry 99 Oxygen Delivery Method 05/11/23 11:45 05/11/23 12:00 05/11/23 12:00 Temperature Pulse Rate 71 73 Respiratory Rate 14 21 Blood Pressure 113/73 Pulse Oximetry 98 99 Oxygen Delivery Method Room Air MDM - Neuro Symptoms/Deficit Lab Data 05/11/23 10:02 05/11/23 10:02 Labs: Lab Results 05/11/23 05/11/23 Range/Units 10:02 11:30 WBC 5.4 (4.5-11.0) X10^3/uL RBC 5.04 (4.5-5.9) X10^6/uL Hgb 14.8 (13.5-17.5) g/dL Hct 44.3 (41-53) % MCV 87.7 (80-100) fL MCH 29.3 (26-34) PG MCHC 33.4 (30-36) % RDW 14.0 (11.6-14.8) % Plt Count 254 (150-400) X10^3/uL Neut % (Auto) 66.4 (50-75) % Lymph % (Auto) 18.7 L (25-40) % [place] % (Auto) 13.4 (3-14) % Eos % (Auto) 0.9 L (2-4) % Baso % (Auto) 0.6 (0-2) % Neut # (Auto) 3600 (8579-0897) /uL Lymph # (Auto) 1000 L (8490-3784) /uL [place] # (Auto) 700 (0-900) /uL Eos # (Auto) 0 (0-450) /uL Baso # (Auto) 0 (0-100) /uL Sodium 140 (137-145) mmol/L Potassium 4.2 (3.4-5.1) mmol/L Chloride 105 (98-107) mmol/L Carbon Dioxide 31 (22-32) mmol/L BUN 13 (9-20) mg/dL Creatinine 0.90 (0.66-1.25) mg/dL Estimated GFR > 60 (>60) mL/min BUN/Creatinine Ratio 14.4 (6-22) Glucose 85 (80-110) mg/dL Calcium 9.4 (8.4-10.2) mg/dL Total Bilirubin 0.6 (0.2-1.3) mg/dL AST 28 (17-59) IU/L ALT 21 (<50) IU/L Alkaline Phosphatase 65 (38-126) U/L Total Creatine Kinase 154 (55-170) U/L Troponin I < 0.012 (0.01-0.034) ng/mL Total Protein 6.6 (6.3-8.2) g/dL Albumin 4.0 (3.5-5.0) g/dL Globulin 2.6 (1.7-4.1) g/dL Albumin/Globulin Ratio 1.5 (1.0-2.8) Urine RBC None seen (0-5/HPF) Urine WBC 0-1/hpf (0-5/HPF) Ur Squamous Epith Cells 0-1 /hpf (0-5/HPF) Triple Phos Crystals Occasional Urine Bacteria None seen (None) Ur Culture Indicated? Cult not indicated Vol Urine Centrifuged 10ml (spun) Urine Dip Bedside Urine Glucose Negative Bedside Urine Bilirubin - Negative Bedside Urine Ketone - Negative Urine Specific [place] 1.015 Bedside Urine Occult Blood - Negative Bedside Urine pH 8.0 Bedside Urine Protein - Negative Bedside Urine Urobilinogen - Negative Bedside Urine Nitrite - Negative Bedside Urine Leukocytes +++ 500 Esterase Imaging Data Chest x-ray: Radiologist's Impression: PROCEDURE: XR CHEST 1V INDICATIONS: chest pain confusion TECHNIQUE: One view of the chest was acquired. COMPARISON: None. FINDINGS: Surgical changes and devices: None. Lungs and pleura: Lungs are clear. No pleural effusions or pneumothorax. Mediastinum: Mediastinal contours appear normal. Heart size is normal. Bones and chest wall: No suspicious bony lesions. Overlying soft tissues appear unremarkable. IMPRESSION: No acute cardiopulmonary abnormality is seen. Dictated by: Daniel Boykin M.D. on 05/11/2023 at 10:19 ECG Data Interpretation: Normal sinus rhythm rate 79 SD interval 134 QRS 98 QTC 433 PVC noted no ischemic changes MDM Narrative Medical decision making narrative: Patient 69-year-old male history of hypoxic brain injury presenting today with increased confusion. He recently started Ambien this week to help with insomnia, however it might making him more confused. Does not sound like it is helping him sleep. I wonder if he has some dementia and sundowning. Blood work has been reviewed no clinical significant abnormalities no leukocytosis electrolyte abnormality VEENA or anemia Urinalysis is positive for leukocytes but no culture indicated EKG has been reviewed as above Chest x-ray reviewed I suspect whatever confusion family has noted maybe related to starting Ambien. At this time I recommend that they holding Ambien. No evidence of infection no need for antibiotics. He has no obvious focal deficits mild confusion which seems to be at about baseline no evidence of trauma. No need for head CT at this time. Recommend following up with PCP may need alternative medication. Discharge Plan Departure Patient Disposition: Home Clinical Impression: Medication reaction Instructions: DI for Adverse Drug Reaction -- Other Activity Restrictions/Additional Instructions: *You have been diagnosed with adverse drug reaction *What to do: The worsening confusion that you may have noticed maybe from the Ambien. If it is not helping him sleep then I recommend not giving it to him. Please follow-up with your PCP about other dementia like medications, and other things to help him sleep. *Continue to take medications as directed *Follow up with your primary care provider in 2-3 days or call [phone] *Return to ER if you should have any new, worsening or concerning symptoms Prescriptions: No Action trospium 20 mg tablet 20 mg PO BID Patient Comments: take 1 tablet by mouth twice a day cyclobenzaprine 10 mg tablet 10 mg PO ONCE PM pregabalin 150 mg capsule 150 mg PO BID zolpidem 5 mg tablet 5 mg PO ONCE PM PRN (Reason: insomnia) pregabalin 50 mg capsule 50 mg PO ONCE PM niacin [Niaspan Extended-Release] 500 mg Tablet Extended Release 24 Hr 500 mg PO BID melatonin 5 mg Tablet 6 mg PO BEDTIME PRN (Reason: Sleep) cholecalciferol (vitamin D3) [Vitamin D3] 2,000 unit Capsule 2,000 unit PO DAILY Referrals: Miscellaneous,Doctor, MD [Primary Care Provider] - Stand Alone Forms: Patient Portal/API
[2023-05-11 10:09] LABS: Add Manual Diff / Slide Review NO; Basophils Absolute Auto 0 /uL (0-100); Basophils Percent Auto 0.6 % (0-2); Eosinophils Absolute Auto 0 /uL (0-450); Eosinophils Percent Auto 0.9 % (2-4); Hematocrit 44.3 % (41-53); Hemoglobin 14.8 g/dL (13.5-17.5); Lymphocytes Absolute Auto 1000 /uL (1100-4500); Lymphocytes Percent Auto 18.7 % (25-40); Mean Corpuscular HGB Conc 33.4 % (30-36); Mean Corpuscular Hemoglobin 29.3 PG (26-34); Mean Corpuscular Volume 87.7 fL (80-100); Monocytes Absolute Auto 700 /uL (0-900); Monocytes Percent Auto 13.4 % (3-14); Neutrophils Absolute Auto 3600 /uL (1500-7000); Neutrophils Percent Auto 66.4 % (50-75); Platelet Count 254 X10^3/uL (150-400); Red Blood Cell Count 5.04 X10^6/uL (4.5-5.9); White Blood Cell Count 5.4 X10^3/uL (4.5-11.0)
[2023-05-11 10:24] LABS: Alanine Aminotransferase 21 IU/L (<50); Albumin Globulin Ratio 1.5 (1.0-2.8); Alkaline Phosphatase 65 U/L (38-126); Aspartate Aminotransferase 28 IU/L (17-59); BUN Creatinine Ratio 14.4 (6-22); Bilirubin Total 0.6 mg/dL (0.2-1.3); Blood Urea Nitrogen 13 mg/dL (9-20); Calcium 9.4 mg/dL (8.4-10.2); Carbon Dioxide 31 mmol/L (22-32); Chloride 105 mmol/L (98-107); Creatine Kinase 154 U/L (55-170); Estimated Glomerular Filt Rate > 60 mL/min (>60); Globulin 2.6 g/dL (1.7-4.1); Glucose 85 mg/dL (80-110); HEMOLYSIS < 15 (0-50); Potassium 4.2 mmol/L (3.4-5.1); Sodium 140 mmol/L (137-145); Total Protein 6.6 g/dL (6.3-8.2)
[2023-05-11 10:35] LABS: Troponin I < 0.012 ng/mL (0.01-0.034)
[2023-05-11 12:06] LABS: Bacteria Urine None Seen; RBC Urine None Seen (0-5/HPF); Squamous Epithelial Cell Urine 0-1 /HPF (0-5/HPF); Triple Phosphate Crystal Urine Occasional; Urine Volume 10mL (spun); WBC Urine 0-1/HPF (0-5/HPF)
[2023-05-11 12:07] LABS: Culture Indicated Urine Cult Not Indicated
== END 2023-05-11 12:17 | disposition home or self-care (01) ==
PROVIDERS: Emergency Provider Emergency Medicine
DX: R41.0 Disorientation, unspecified (principal); T42.6X5A Adverse effect of other antiepileptic and sedative-hypnotic drugs, initial encounter; I49.3 Ventricular premature depolarization
CPT/HCPCS: 36415; 71045; 80053; 81003; 81015; 82550; 84484; 85025; 93005; 93010; 99283; 99284